=== PATIENT | male | born 1970 | race Caucasian/White ===

== ENCOUNTER 2016-11-25 14:53 | Emergency (ER) | payer SELFPAY ==
[~2016-11-25] VITALS: Ht 177.8 cm; Wt 69.0 kg
[2016-11-25 14:53] VITALS: BP 130/87; PULSE 75; RESP 12; TEMP 98.2
[2016-11-25] MEDS ORDERED: KETOROLAC TROMETHAMINE 60 MG/2 ML (IM) VIAL IM ONE (16:15)
--- NOTE | 2016-11-25 16:43 | PD ---
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 Approximately 3 hours prior to exam the patient was playing basketball and he jumped and when he came down he had pain in the anterior aspect of the knee. He has had swelling since. He has not been able to bear weight. He denies any paresthesias, new weakness or sensation disturbance. Denies any pain in his hip or ankle. No history of knee surgery. No attempts at palliation. The pain does not radiate. It neuropathy and dropfoot are complications from shingles many years ago. He denies any chronic medical problems. [facility] Social History Tobacco Use: No Allergies-Medications (Allergen,Severity, Reaction): Coded Allergies: No Known Allergies (Unverified , 11/25/16) Reported Meds & Prescriptions Reported Meds & Active Scripts Active No Active Prescriptions or Reported Medications Review of Systems General / Constitutional: No: Fever, Chills Musculoskeletal: Positive: Other (see the history of present illness) Neurologic: Positive: Sensory Disturbance (chronic, none new), No: Focal Abnormalities (chronic, none new) Physical Exam Narrative GENERAL: Well-developed and well-nourished adult male in no acute distress. SKIN: Warm and dry. Good turgor without tenting. HEAD: Normocephalic and atraumatic. EYES: PERRL bilaterally, 5mm. EOMI bilaterally. No injection or icterus present. No proptosis. Lids without edema or erythema. CARDIOVASCULAR: Regular rate and rhythm without murmurs, rubs, clicks or gallops. Dorsalis pedis and posterior tibial pulses 2+ bilaterally. Capillary refill less than 2 seconds distal tip of all toes of left foot. RESPIRATORY: Clear to auscultation bilaterally with symmetrical rise and fall, no distress or use of accessory muscles. MUSCULOSKELETAL: Left knee has swelling anteriorly. Area pain is anterior medial. It is diffuse in this region. No patellar or fibular head tenderness. Equivocal tibial plateau tenderness. Negative Mago test and varus and valgus of the left knee. Positive Tim for medial meniscal injury. Patient is no range of motion in the knee and palpation of the patellar and quadriceps tendon reveals no laxity or step-offs. Palpation of the left hip and left ankle reveals no tenderness of patient has normal range of motion in same. Patient freely moving all four extremities spontaneously. Extremities without clubbing or cyanosis. No obvious deformities. NEUROLOGIC: CN II-XII grossly intact. Awake and alert. Strength 5/5 left hip flexion, hip extension, knee flexion, knee extension. Strength 4/5 in left plantar flexion, strength 0/5 in left dorsiflexion. Sensation intact to the distal tip of all toes left foot. Normal speech. PSYCHIATRIC: Appropriate mood and affect; insight and judgment normal. Data Data Last Documented VS Vital Signs Date Time Temp Pulse Resp B/P Pulse Ox O2 Delivery O2 Flow Rate FiO2 11/25/16 14:53 98.2 75 12 130/87 Room Air Orders Ketorolac Inj (Toradol Inj) (11/25/16 16:15) Knee, Complete (4vws) (11/25/16 16:07) Ice/Cold Pack (11/25/16 16:07) Crutches (11/25/16 17:22) Splint Or Brace Apply/Monitor (11/25/16 17:22) MDM Medical Decision Making Medical Screen Exam Complete: Yes Emergency Medical Condition: Yes Interpretation(s) Last 24 hours Impressions Knee X-Ray 11/25/16 1607 Signed Impressions: Service Date/Time: October 16:48 - CONCLUSION: 1. Mild arthritic changes. No acute abnormality. Milton Tucker MD Differential Diagnosis Knee sprain versus meniscus tear versus ligamentous tear versus tibial plateau fracture Narrative Course Patient is a 46-year-old male left knee injury while playing basketball 3 hours prior to exam. There is a positive Tim however given the clinic and is him this may only be a sprain as patient seems tender with all touch and movements. There is no instability of the knee and he is neurovascular intact. He does have chronic neuropathy and dropped foot and the left lower extremity with no acute worsening. Patient is given Toradol IM and ordered x-ray of the knee which shows mild arthritic changes. No fracture or effusion. Patient was placed in a knee immobilizer and given crutches. Explained this is likely a sprain but could have a meniscus injury and recommend follow-up with PCP or orthopedic next week. Given prescription for naproxen.See discharge paperwork for further instructions. The plan was discussed with the patient who acknowledged their understanding and agreement. Reinforced the follow-up with primary care is critically important. Patient instructed on emergent conditions that should prompt return to ED. Diagnosis Primary Impression: Left knee injury Qualified Code: S89.92XA - Left knee injury, initial encounter Patient Instructions: General Instructions, Knee Sprain (ED) Departure Forms: Tests/Procedures, Work Release Enter return to work date: Nov 29, 2016 Additional Instructions: Take medications as prescribed Apply ice every 1 to 2 hours as needed for pain Avoid maneuvers that aggravate pain Keep knee immobilizer on while being active or using extremity Use crutches when walking to avoid pressure on joint Elevate when at rest Be aware that may take several weeks for sprains to heal fully Follow-up with PCP or orthopedist in 2-3 days Return to the ED for any acute worsening of symptoms Med/Other Pt SpecificInfo: Prescription(s) given Scripts Naproxen 500 Mg [id number] Mg PO BID #10 TAB Prov:Michelle Marrero MD 11/25/16 Disposition: 01 DISCHARGE HOME Condition: Stable Cy Snow III Nov 25, 2016 16:43
--- NOTE | 2016-11-25 17:18 | RADRPT ---
EXAM DATE/TIME: 11/25/2016 16:48 [facility] COMPARISON: No previous studies available for comparison. INDICATIONS : Left anterior knee pain and swelling post fall today. MEDICAL HISTORY : None. SURGICAL HISTORY : None. ENCOUNTER: Initial ACUITY: 1 day PAIN SCORE: 8/10 LOCATION: Left knee FINDINGS: The exam demonstrates mild arthritic changes in the medial compartment. There is no acute fracture or structural lesion. No joint effusion is present. CONCLUSION: 1. Mild arthritic changes. No acute abnormality. Milton Tucker MD on November 25, 2016 at 17:16 Board Certified Radiologist. This report was verified electronically.
[2016-11-25] MEDS ORDERED: NAPR500T PO (17:29)
[2016-11-25 17:45] VITALS: RESP 18
== END 2016-11-25 17:51 | disposition home or self-care (01) ==
LOC: NEPB 14:53
DX: S89.92XA Unspecified injury of left lower leg, initial encounter (principal); R22.42 Localized swelling, mass and lump, left lower limb; G57.92 Unspecified mononeuropathy of left lower limb; M21.372 Foot drop, left foot; Z86.69 Personal history of other diseases of the nervous system and sense organs; X58.XXXA Exposure to other specified factors, initial encounter; Y93.67 Activity, basketball
CPT/HCPCS: 73564; 96372; 99283; E0113; J1885; L1830

== ENCOUNTER 2017-04-07 20:42 | Observation (INO) | payer OTHER ==
[~2017-04-07] VITALS: Ht 177.8 cm; Wt 75.0 kg
[~2017-04-07 20:42] MED LIST: NAPR500T PO
[2017-04-07 20:46] VITALS: BP 132/74; PULSE 96; RESP 22; TEMP 98.1; O2SAT 97
[2017-04-07] MEDS ORDERED: methylPREDNISolone SOD SUCC 125 MG/2 ML VIAL IVP ONE (21:15)
--- NOTE | 2017-04-07 21:19 | PD ---
HPI Chief Complaint: Chest Pain Time Seen by Provider: 21:00 Travel History International Travel<30 days: No Contact w/Intl Traveler<30days: No Traveled to known affect area: No History of Present Illness HPI 46yo M with PMH of polysubstance abuse presents to the ED with c/o left sided chest pain for a few days. States it is sharp, nonradiating and associated with sob. Pt has been smoking cocaine for last 5 days and last time was an hour ago. +Cough. +Cigarette smoking. Denies any shop tech or follow up. Denies any fever, IVDA, n/v, abdominal pain, focal weakness or numbness. PFSH Past Medical History Medical History: Denies Significant Hx Tetanus Vaccination: Unknown Influenza Vaccination: No Past Surgical History Tonsillectomy: Yes Social History Alcohol Use: Yes Tobacco Use: Yes Substance Use: Yes (COCAINE, FLAKKA) Allergies-Medications (Allergen,Severity, Reaction): Coded Allergies: No Known Allergies (Unverified , 04/07/17) Reported Meds & Prescriptions Reported Meds & Active Scripts Active Ventolin Hfa 18 GM Inh (Albuterol Sulfate) 90 Mcg/Act Aer 2 Puff INH Q4H PRN Deltasone (Prednisone) 20 Mg Tab 20 Mg PO BID 5 Days Review of Systems Except as stated in HPI: all other systems reviewed are Neg Physical Exam Narrative GENERAL: 46yo M in mild distress. SKIN: Focused skin assessment warm/dry. HEAD: Atraumatic. Normocephalic. EYES: Pupils equal and round. No scleral icterus. No injection or drainage. ENT: No nasal bleeding or discharge. Mucous membranes pink and moist. NECK: Trachea midline. No JVD. CARDIOVASCULAR: Regular rate and rhythm. No murmur appreciated. RESPIRATORY: No accessory muscle use. Coarse breath sounds bilaterally. GASTROINTESTINAL: Abdomen soft, non-tender, nondistended. MUSCULOSKELETAL: No obvious deformities. No clubbing. No cyanosis. No edema. NEUROLOGICAL: Awake and alert. No obvious cranial nerve deficits. Motor grossly within normal limits. Normal speech. PSYCHIATRIC: Appropriate mood and affect; insight and judgment normal. Data Data Last Documented VS Vital Signs Date Time Temp Pulse Resp B/P Pulse Ox O2 Delivery O2 Flow Rate FiO2 04/07/17 22:00 88 18 123/69 96 Room Air 04/07/17 20:46 98.1 Orders Electrocardiogram (04/07/17 20:57) Complete Blood Count With Diff (04/07/17 20:57) Basic Metabolic Panel (Bmp) (04/07/17 20:57) Ckmb (Isoenzyme) Profile (04/07/17 20:57) Troponin I (04/07/17 20:57) Chest, Single Ap (04/07/17 20:57) Iv Access Insert/Monitor (04/07/17 20:57) Ecg Monitoring (04/07/17 20:57) Oxygen Administration (04/07/17 20:57) Oximetry (04/07/17 20:57) Drug Screen, Random Urine (04/07/17 20:57) Methylprednisolone So Succ Inj (Solumedr (04/07/17 21:15) Albuterol-Ipratropium Neb (Duoneb Neb) (04/07/17 21:15) CKMB (04/07/17 20:55) CKMB% (04/07/17 20:55) Admit Order (Ed Use Only) (04/07/17 22:29) Activity Bed Rest With Brp (04/07/17 22:29) Vital Signs (Adult) Q4H (04/07/17 22:29) Cardiac Rhythm .As Directed (04/07/17:29) Notify Dr: Other .PRN (04/07/17 22:29) Notify DrLucille Parameters (04/07/17:29) Resp Oxygen Nasal Cannula (04/07/17 ) Ckmb (Isoenzyme) Profile (04/07/17:29) Ckmb (Isoenzyme) Profile (04/08/17 01:29) Troponin I (04/07/17 22:29) Troponin I (04/08/17 01:29) Electrocardiogram (04/07/17 22:29) Electrocardiogram (04/08/17 01:29) ^ Obtain (04/07/17:29) Pneumatic Tube Operator / Telemetry JACY.Q8H (04/07/17 22:29) CKMB (04/08/17 01:30) CKMB% (04/08/17 01:30) Labs Laboratory Tests Test 04/07/17 04/07/17 20:55 21:00 White Blood Count 9.3 TH/MM3 Red Blood Count 4.66 MIL/MM3 Hemoglobin 15.4 GM/DL Hematocrit 43.6 % Mean Corpuscular Volume 93.6 FL Mean Corpuscular Hemoglobin 32.9 PG Mean Corpuscular Hemoglobin 35.2 % Concent Red Cell Distribution Width 12.9 % Platelet Count 203 TH/MM3 Mean Platelet Volume 8.4 FL Neutrophils (%) (Auto) 67.6 % Lymphocytes (%) (Auto) 23.4 % Monocytes (%) (Auto) 7.4 % Eosinophils (%) (Auto) 1.1 % Basophils (%) (Auto) 0.5 % Neutrophils # (Auto) 6.3 TH/MM3 Lymphocytes # (Auto) 2.2 TH/MM3 Monocytes # (Auto) 0.7 TH/MM3 Eosinophils # (Auto) 0.1 TH/MM3 Basophils # (Auto) 0.0 TH/MM3 CBC Comment DIFF FINAL Differential Comment Sodium Level 139 MEQ/L Potassium Level 3.8 MEQ/L Chloride Level 105 MEQ/L Carbon Dioxide Level 18.3 MEQ/L Anion Gap 16 MEQ/L Blood Urea Nitrogen 10 MG/DL Creatinine 1.04 MG/DL Estimat Glomerular Filtration 77 ML/MIN Rate Random Glucose 138 MG/DL Calcium Level 9.1 MG/DL Total Creatine Kinase 239 U/L Creatine Kinase MB 1.2 NG/ML Troponin I LESS THAN 0.02 NG/ML Urine Opiates Screen NEG Urine Barbiturates Screen NEG Urine Amphetamines Screen NEG Urine Benzodiazepines Screen NEG Urine Cocaine Screen POS Urine Cannabinoids Screen NEG MDM Medical Decision Making Medical Screen Exam Complete: Yes Emergency Medical Condition: Yes Interpretation(s) EKG: NSR 46bpm. LAD. TWI aVL. No ST segment elevation or depression. Differential Diagnosis Cocaine induced chest pain vs. ACS vs. COPD vs. pneumonia Narrative Course 46yo M with left sided chest pain that is intermittent and associated with cocaine use. Last use cocaine an hour prior to coming. Pt does have coarse breath sounds bilaterally and is a smoker so gave duonebs x3 and methylprednisolone 125mg IV. Pt is saturating at 98% on RA and not in distress. Pt likely have chronic bronchitis and emphysema. Labs reviewed, no leukocytosis. Chloride is mildly decreased, will give NS IVF. Glucose is 138. Troponin is negative. Urine positive for cocaine. CXR negative. Pt given aspirin. Will admit to chest pain center for serial EKG and cardiac enzymes. Diagnosis Primary Impression: Chest pain Qualified Code: R07.9 - Chest pain, unspecified type Admitting Information Admitting Physician Requests: Observation Med/Other Pt SpecificInfo: Prescription(s) given Scripts Albuterol 18 GM Inh (Ventolin Hfa 18 GM Inh)90 Mcg/Act Aer2 Puff INH Q4H PRN ( SHORTNESS OF BREATH) #1 INHALER Ref 0 Prov:Lindy Richard DO 04/07/17 Prednisone (Deltasone)20 Mg Tab20 Mg PO BID 5 Days Ref 0 Prov:Lindy Richard DO 04/07/17 Lindy Richard DO Apr 07, 2017 21:19
[2017-04-07 21:21] LABS: AUTOMATED NEUTROPHIL # 6.3 TH/MM3 (1.8-7.7); BASOPHIL % 0.5 % (0.0-2.0); EOSINOPHIL # 0.1 TH/MM3 (0-0.4); EOSINOPHIL % 1.1 % (0.0-4.0); HEMATOCRIT 43.6 % (39.0-51.0); HEMO FLAGS DIFF FINAL; LYMPH % 23.4 % (9.0-44.0); LYMPHOCYTE # 2.2 TH/MM3 (1.0-4.8); MEAN CELL VOLUME 93.6 FL (80.0-100.0); MEAN CORPUSCULAR HEMOGLOBIN 32.9 PG (27.0-34.0); MEAN CORPUSCULAR HGB CONC 35.2 % (32.0-36.0); MONO % 7.4 % (0.0-8.0); NEUT % 67.6 % (16.0-70.0); PLATELET COUNT 203 TH/MM3 (150-450); RED BLOOD COUNT 4.66 MIL/MM3 (4.50-5.90); RED CELL DISTRIBUTION WIDTH 12.9 % (11.6-17.2); WHITE BLOOD COUNT 9.3 TH/MM3 (4.0-11.0)
[2017-04-07 21:25] LABS: AMPHETAMINE, URINE NEG (NEG); BARBITURATES, URINE NEG (NEG); COCAINE, URINE POS (NEG)
[2017-04-07] MEDS: RESP: ALBUTEROL 2.5 MG/IPRATROPIUM 0.5 MG NEB (SCH) INH ×3 (21:36→21:45)
[2017-04-07 21:38] LABS: ANION GAP 16 MEQ/L (5-15); BICARBONATE 18.3 MEQ/L (21.0-32.0); BLOOD UREA NITROGEN 10 MG/DL (7-18); CHLORIDE 105 MEQ/L (98-107); GLOMERULAR FILTRATION RATE 77 ML/MIN (>89); POTASSIUM 3.8 MEQ/L (3.5-5.1); SODIUM (NA) 139 MEQ/L (136-145)
--- NOTE | 2017-04-07 21:40 | RADRPT ---
EXAM DATE/TIME: 04/07/2017 21:21 [facility] COMPARISON: No previous studies available for comparison. INDICATIONS : Chest pain. MEDICAL HISTORY : Chronic obstructive pulmonary disease. SURGICAL HISTORY : None. ENCOUNTER: Initial ACUITY: 4 - 6 days PAIN SCORE: 5/10 LOCATION: Bilateral chest FINDINGS: A single view of the chest demonstrates the lungs to be symmetrically aerated without evidence of mas s, infiltrate or effusion. The cardiomediastinal contours are unremarkable. Osseous structures are intact. CONCLUSION: No acute disease. Cy Huerta MD on April 07, 2017 at 21:38 Board Certified Radiologist. This report was verified electronically.
[2017-04-07 21:42] LABS: CREATINE KINASE 239 U/L (39-308)
[2017-04-07 21:56] LABS: CKMB 1.2 NG/ML (0.5-3.6)
[2017-04-07 22:00] VITALS: BP 123/69; PULSE 88; RESP 18; O2SAT 96
[2017-04-07] MEDS ORDERED: PRED-503 PO (22:35)
[2017-04-07] MEDS ORDERED: VENTAER INH (22:35)
[2017-04-07] MEDS ORDERED: SODIUM CHLOR 0.9% 1000 ML INJ 1,000 ML IV ONE (22:45)
[2017-04-07] MEDS ORDERED: ASPIRIN 325 MG TAB PO ONE (22:45)
[2017-04-07 23:29] VITALS: BP 115/68; PULSE 90; RESP 20; TEMP 96.3; O2SAT 99
[2017-04-07 23:31] LABS: CREATINE KINASE 219 U/L (39-308)
[2017-04-08 02:41] LABS: CREATINE KINASE 204 U/L (39-308)
[2017-04-08 02:54] LABS: CKMB 1.2 NG/ML (0.5-3.6)
[2017-04-08 04:01] VITALS: BP 111/60; PULSE 74; RESP 20; TEMP 96.5; O2SAT 98
[2017-04-08 07:34] VITALS: O2SAT 98
--- NOTE | 2017-04-08 07:58 | HHI.HP ---
HPI Primary Care Physician David Masters Chief Complaint Chest pain History of Present Illness 46-year-old male presents to emergency room for further evaluation of chest pain endorses x5 days constant cocaine use. Onset 3 days ago. Location left anterior chest. Characterized as pressure with intermittent quick sharp pains. Duration constant waxing and waning in intensity. No radiation of pain. Precipitating factors he relates to constant cocaine use 5 days. Endorses he has not slept or a the last 5 days, stating "I've only been smoking cocaine." No known relieving factors. No particular movement or position makes pain better or worse. Denies any similar chest pain in the past. Review of Systems General: No fever, chills, or recent illness. Endorses he has been in his general state of health other than the last 5 days of cocaine use. Reports he has not eaten in 5 days due to his "constant high." States he had been clean for a year and a half prior to most recent cocaine binge. HEENT: No HEDRICK, no nasal congestion or drainage, no dysphasia CV: As stated above. Continues to have intermittent chest pressure. RESP: No SOB, cough, wheeze, or recent URI. GI: No nausea, vomiting, bowel changes, diarrhea, constipation, pain, distention , melena, blood in the stool. : No dysuria, urgency, frequency EXT: No lower leg edema, no paraesthesias MS: No change in ROM NEURO: No change in memory, dizziness, difficulty with balance, LOC, motor/ sensory deficits PSYCH: No anxiety, depression, or suicidal ideation. SKIN: No rashes, no concerning lesions Past Family Social History Allergies: Coded Allergies: No Known Allergies (Unverified , 04/07/17) Past Medical History Polysubstance abuse Past Surgical History Tonsillectomy Reported Medications Active (GIVEN IN THIS ER ADMISSION) Ventolin Hfa 18 GM Inh (Albuterol Sulfate) 90 Mcg/Act Aer 2 Puff INH Q4H PRN Deltasone (Prednisone) 20 Mg Tab 20 Mg PO BID 5 Days Active Ordered Medications Current Medications Medications (Trade) Dose Ordered Sig/Taylor Route Start Time Stop Time Status Last Admin (Pneumovax-23 Inj) 25 mcg ONCE ONCE IM 04/08/17 09:00 04/08/17 09:01 Family History Noncontributory for early onset cardiovascular disease. Father has had multiple open heart surgeries although related to congenital defects. Social History No known diabetes, hypertension, hyperlipidemia. Current smoker1/2 pack daily. Drinks 6 beers daily. Cocaine use 5 days last use 1 hour prior to arrival to ER. Works as a hot tar roofer helper. Active. Endorses he does not have any chest discomfort with activity or exertion. Past cardiac testing None Physical Exam Vital Signs Vital Signs Date Time Temp Pulse Resp B/P Pulse Ox O2 Delivery O2 Flow Rate FiO2 04/08/17 07:34 98 21 04/08/17 04:01 96.5 74 20 111/60 98 04/07/17 23:29 96.3 90 20 115/68 99 04/07/17 22:00 88 18 123/69 96 Room Air 04/07/17 20:46 98.1 96 22 132/74 97 Physical Exam GENERAL: Alert WN, WD, NAD, pleasant, male HEAD: NC, AT EYES: Sclera clear NECK: Supple, no masses, trachea midline CV: RRR, without murmur, rub, gallop, no JVD, S1-S2 no S3-S4. Chest wall pain reproducible upon palpation. RESP: Rhonchi upper lobes, bilateral wheezing bilateral, No crackles, symmetrical chest rise, nonlabored, able to speak in full sentences ABD: Soft, NT, ND, no masses, positive bowel tones EXT: Pulses +24, no dependent edema MS: Normal tone 4 extremities, nontender, no obvious deformities, full range of motion NEURO: CN II through CN XII grossly intact, motor strength 5/5, gait WNL PSYCH: A+O 3, pleasant affect, appropriate speech, appropriate mood and affect , insight and judgment SKIN: Normal turgor, normal texture, no lesions, no rashes, brisk cap refill, even hair distribution Laboratory Laboratory Tests Test 04/07/17 04/07/17 04/07/17 04/08/17 20:55 21:00 22:50 01:30 White Blood Count 9.3 Red Blood Count 4.66 Hemoglobin 15.4 Hematocrit 43.6 Mean Corpuscular Volume 93.6 Mean Corpuscular Hemoglobin 32.9 Mean Corpuscular Hemoglobin 35.2 Concent Red Cell Distribution Width 12.9 Platelet Count 203 Mean Platelet Volume 8.4 Neutrophils (%) (Auto) 67.6 Lymphocytes (%) (Auto) 23.4 Monocytes (%) (Auto) 7.4 Eosinophils (%) (Auto) 1.1 Basophils (%) (Auto) 0.5 Neutrophils # (Auto) 6.3 Lymphocytes # (Auto) 2.2 Monocytes # (Auto) 0.7 Eosinophils # (Auto) 0.1 Basophils # (Auto) 0.0 CBC Comment DIFF FINAL Differential Comment Sodium Level 139 Potassium Level 3.8 Chloride Level 105 Carbon Dioxide Level 18.3 Anion Gap 16 Blood Urea Nitrogen 10 Creatinine 1.04 Estimat Glomerular Filtration 77 Rate Random Glucose 138 Calcium Level 9.1 Total Creatine Kinase 239 219 204 Creatine Kinase MB 1.2 1.2 Troponin I LESS THAN 0.02 LESS THAN 0.02 LESS THAN 0.02 Urine Opiates Screen NEG Urine Barbiturates Screen NEG Urine Amphetamines Screen NEG Urine Benzodiazepines Screen NEG Urine Cocaine Screen POS Urine Cannabinoids Screen NEG Result Diagram: 04/07/17205404/07/172054 Imaging Last Impressions Chest X-Ray 04/07/172056 Signed Impressions: Service Date/Time: March 21:21 - CONCLUSION: No acute disease. Cy Huerta MD Course EKGs Normal sinus rhythm, no ST or T-segment changes Assessment and Plan Assessment and Plan #1 Chest painthe chest pain center. Ruled out with serial EKGs and cardiac enzymes. Seen and evaluated by Dr. Verena Matt. No further cardiac testing at this time. Offered exercise treadmill, however discuss chest discomfort likely related to his recent cocaine binge. He does not want to complete an exercise treadmill as he also believes chest discomfort related to cocaine binge. Encouraged him to rest over the weekend, eating and drinking plenty of fluids, and to stop using cocaine. #2 Cocaine use-counseled on risks of cocaine use, risk of [place], weakening of the heart muscle, and even . Instructed to speak with PCP regarding drug treatment plan. #3 Tobacco use-strongly encouraged and stressed importance of tobacco sensation. Discussed and counseled patient to quit smoking. Ibeth Coulter Apr 08, 2017 07:58
[2017-04-08] MEDS ORDERED: ACETAMINOPHEN 500 MG CPLT PO PRN (08:00)
[2017-04-08] MEDS ORDERED: NITROGLYCERIN 0.4 MG SL 25 TABS/BTL SL PRN (08:00)
[2017-04-08] MEDS ORDERED: ONDANSETRON HCL 4 MG/2 ML VIAL IV PRN (08:00)
[2017-04-08 08:13] VITALS: BP 125/57; PULSE 60; RESP 20; TEMP 97.9; O2SAT 95
[2017-04-08] MEDS ORDERED: ASPIRIN 325 MG TAB PO SCH (09:00)
[2017-04-08] MEDS ORDERED: PNEUMOCOCCAL POLYVALENT INJ 25 MCG/0.5 ML SYR IM ONE (09:00)
[2017-04-08] MEDS ORDERED: RESP: ALBUTEROL 2.5 MG/3 ML NEB (PRN) NEB (09:15)
--- NOTE | 2017-04-08 09:29 | HHI.DCPOC ---
Discharge Care Plan Diagnosis: (1) Atypical chest pain (2) Substance abuse (3) Tobacco abuse Goals to Promote Your Health * To prevent worsening of your condition and complications * To maintain your health at the optimal level Directions to Meet Your Goals Take your medications as prescribed Follow your dietary instruction Follow activity as directed Keep your appointments as scheduled Take your immunizations and boosters as scheduled If your symptoms worsen call your PCP, if no PCP go to Urgent Care Center or Emergency Room Smoking is Dangerous to Your Health. Avoid second hand smoke Call the 24-hour hour crisis hotline for domestic abuse at Ibeth Coulter Apr 08, 2017 09:29
[2017-04-08 10:22] VITALS: PULSE 62
--- NOTE | 2017-04-08 15:18 | EKG ---
Date Performed: 04/08/2017 Time Performed: 04:06:36 PTAGE: 46 years EKG: SINUS BRADYCARDIA BORDERLINE ECG PREVIOUS TRACING : 04/07/2017 23.37 Since previous tracing, no significant change noted DOCTOR: Verena Matt Interpretating Date/Time 04/08/2017 15:17:04
--- NOTE | 2017-04-08 15:18 | EKG ---
Date Performed: 04/07/2017 Time Performed: 23:37:40 PTAGE: 46 years EKG: Sinus rhythm WITH SINUS ARRHYTHMIA INDETERMINATE AXIS BORDERLINE ECG Since PREVIOUS TRACING , no significant change noted PREVIOUS TRACIN04/07/2017 22.56 DOCTOR: Verena Matt Interpretating Date/Time 04/08/2017 15:17:29
--- NOTE | 2017-04-08 15:22 | EKG ---
Date Performed: 04/07/2017 Time Performed: 22:56:20 PTAGE: 46 years EKG: Sinus rhythm INDETERMINATE AXIS ATYPICAL ECG Abnormal T wave repolarization PREVIOUS TRACING : 04/07/2017 20.50 DOCTOR: Verena Matt Interpretating Date/Time 04/08/2017 15:21:29
--- NOTE | 2017-04-08 15:23 | EKG ---
Date Performed: 04/07/2017 Time Performed: 20:50:01 PTAGE: 46 years EKG: Sinus rhythm INDETERMINATE AXIS ABNORMAL ECG NO PREVIOUS TRACING DOCTOR: Verena Matt Interpretating Date/Time 04/08/2017 15:21:52
== END 2017-04-08 11:03 | disposition home or self-care (01) ==
LOC: NEPE 20:42 → NEDA 22:31 → NEPGCP 23:22
PROVIDERS: ADMIT Internal Medicine Interventional Cardiology; ATTEND Internal Medicine Interventional Cardiology
DX: R07.89 Other chest pain (principal); F17.210 Nicotine dependence, cigarettes, uncomplicated; F14.90 Cocaine use, unspecified, uncomplicated; Z82.49 Family history of ischemic heart disease and other diseases of the circulatory system
CPT/HCPCS: 71010; 80048; 80307; 82550; 82552; 84484; 85025; 90732; 93005; 94640; 94664; 96361; 96374; 99285; G0378; J2930; J7030

== ENCOUNTER 2018-10-06 05:40 | Inpatient (IN) ==
[2018-10-06] MEDS ORDERED: Ketorolac Inj 30 MG/ML (IVP) Vial IV.PUSH ONE (06:06)
[2018-10-06] MEDS ORDERED: Sod Chloride 0.9% Inj 1,000 ML IV.SIG ONE (06:06)
[2018-10-06 06:47] LABS: Baso # (Auto) 0.1 th/mm3 (0.0-0.2); Eos # (Auto) 0.8 th/mm3 (0.0-0.4); Eos % (Auto) 15.3 % (0.0-4.0); Hematocrit 44.9 % (39.0-51.0); Hemoglobin 15.8 gm/dL (13.0-17.0); Lymph % (Auto) 37.9 % (9.0-44.0); Mean Corpuscular HGB Conc 35.1 % (32.0-36.0); Mean Corpuscular Hemoglobin 35.1 pg (27.0-34.0); Mean Corpuscular Volume 99.8 fL (80.0-100.0); Mean Platelet Volume 9.2 fL (7.0-11.0); Mono # (Auto) 0.4 th/mm3 (0.0-0.9); Mono % (Auto) 7.4 % (0.0-8.0); Neut # (Auto) 2.1 th/mm3 (1.8-7.7); Neut % (Auto) 38.4 % (16.0-70.0); Platelet Count 165 th/mm3 (150-450); Red Cell Distribution Width 13.5 % (11.6-17.2); White Blood Count 5.4 th/mm3 (4.0-11.0)
--- NOTE | 2018-10-06 07:02 | ED ---
HPI General Chief Complaint: Abdominal Pain Stated Complaint: Cold,flu Time Seen by Provider: 10/06/18 05:52 History of Present Illness HPI narrative: This is a 47-year-old male with history coronary artery disease, who presents today with complaints of right lower quadrant abdominal pain that woke him from sleep. Patient states that sharp and unrelenting. He reports associated mild nausea with no vomiting. There is no diarrhea. He states he thought he had to have a bowel movement however this did not relieve his discomfort. There is no reported fevers, chills. He does have a history of kidney stones in the distant past. He is unsure whether this feels as though the it did when he had that. There are no other complaints at the time of examination. Related Data Home Medications Medication Instructions Recorded Confirmed No Known Home Medications 10/06/18 10/06/18 Allergies Allergy/AdvReac Type Severity Reaction Status Date / Time No Known Allergies Allergy Uncoded 04/07/17 20:49 Review of Systems ROS: all other systems reviewed are negative Constitutional Denies chills and Denies fever(s) Eyes Reports system reviewed and no additional complaints, except as docu ENT Reports system reviewed and no additional complaints, except as docu Cardiovascular Denies chest pain, Denies diaphoresis and Denies dyspnea Respiratory Denies cough and Denies dyspnea Gastrointestinal Reports abdominal pain (Lower quadrant), Reports nausea and Denies vomiting Genitourinary Denies dysuria and Reports flank pain (Right flank) Musculoskeletal Reports other Neurologic Reports system reviewed and no additional complaints, except as docu PMFSH Medical History Medical History Patient denies significant medical history (Acute) Surgical History Surgical History No history of previous surgery (Acute) Social History Social History Substance History: Past History Smoking Status: Current every day smoker Tobacco Type: Cigarettes How Often Do You Have a Drink Containing Alcohol: Never Recent Travel in [facility] within the Last 8 Weeks: No Recent Out of Country Travel within the Last 8 Weeks: No Immunization History Tetanus Immunization: Unsure Exam Narrative Exam Narrative: GENERAL: Well-developed well-nourished male in no acute respiratory distress. SKIN: Focused skin assessment warm/dry. HEAD: Atraumatic. Normocephalic. EYES: No scleral icterus. No injection or drainage. ENT: No nasal bleeding or discharge. Mucous membranes pink and moist. NECK: Trachea midline. Supple. CARDIOVASCULAR: Regular rate and rhythm. No murmur appreciated. RESPIRATORY: No accessory muscle use. Clear to auscultation. Breath sounds equal bilaterally. GASTROINTESTINAL: Abdomen soft, subjective right lower quadrant pain. There is no rebound. There is mild guarding to deep palpation. MUSCULOSKELETAL: No obvious deformities. No clubbing. No cyanosis. No edema. Objective right flank pain. No CVA tenderness. NEUROLOGICAL: Awake and alert. No obvious cranial nerve deficits. Motor grossly within normal limits. Normal speech. Course Initial Documented Vital Signs Temperature 98.1 F 10/06/18 05:41 Pulse Rate 59 L 10/06/18 05:41 Respiratory Rate 18 10/06/18 05:41 Blood Pressure 150/77 H 10/06/18 05:41 Pulse Oximetry 100 10/06/18 05:41 Last Documented Vital Signs Temperature 98.1 F 10/06/18 05:41 Pulse Rate 60 10/06/18 10:00 Respiratory Rate 16 10/06/18 10:00 Blood Pressure 122/87 10/06/18 10:00 Pulse Oximetry 99 10/06/18 10:00 Sign Out Sign Out Data: Patient Sign Out occurred on 10/06/18 at 08:45. Patient's care was discussed, and care was transferred from Rico cMcall MD to Sunshine Echeverria. Sign Out Comment: 47-year-old male presents with right lower quadrant pain. Patient states it woke him up suddenly from sleep. It is right lower quadrant radiating towards his groin. It does start in the flank as well. Patient does have a history of kidney stones in the distant past. Urinalysis is pending at this time. If his urinalysis shows evidence of hematuria, a CT scan without contrast will be ordered otherwise he will need one with contrast. Case was signed out to Dr. Cox at change of shift. Last updated by Rico Mccall MD at 10/06/18 07:15 Post-Handoff Eval: Patient was signed out to me by Dr. Mccall at change of shift. UA shows hematuria, a CT of the chest without IV contrast was ordered as there is concerns for a kidney stone. Patient remains comfortable as he has just received Toradol. Medical Decision Making MDM Narrative Medical decision making narrative: During the course of the patients emergency department visit, the patients history, examination, and differential diagnosis were reviewed with the patient. The patient was placed on a spooler with oximetry and frequent blood pressure monitoring. The patient had an IV access obtained and blood work sent for analysis. The patient was initially provided IV Toradol as well as IV morphine for pain relief. The patients laboratory studies were reviewed and remarkable for: cbc: wnl bmp: Sodium 143, potassium 4.5, BUN 15, creatinine 1.08, glucose 91, LFTs are within normal limits. UA is positive for moderate blood, 9 red blood cells, few mucus Radiology studies were reviewed and remarkable for: CT of the abdomen and pelvis shows that there is a right-sided hydronephrosis and hydroureter caused by a 5 x 3 mm stone in the right proximal ureter. Additionally, there are nonobstructing stones in the right kidney as well as a left kidney. I did review lab work as well as CT report with patient as well as his was at bedside. Patient reports that the last time had a kidney stone was 1995, he was able to pass his kidney stone by himself and it did not require any urological intervention. Despite having IV Toradol, patient remains in pain, plan to administer another dose of morphine. Patient has been in the emergency room for over 4 hours, patient reports that the morphine is not touching his pain. Call made to urology to review case. Patient was medicated with IV morphine, patient still unable to tolerate pain, call me to for health care for admission. Case discussed with the resident, accepts patient under Dr. Koehler service. Medical Screen Exam Complete: Yes Emergency Medical Condition: Yes Differential Diagnosis Differential Diagnosis: Renal colic versus appendicitis versus gastroenteritis Lab Data Result diagrams: 10/06/18 06:10 10/06/18 06:10 Lab Results 10/06/18 10/06/18 10/06/18 Range/Units 06:10 06:10 06:33 WBC 5.4 (4.0-11.0) th/mm3 RBC 4.50 (4.50-5.90) mil/mm3 Hgb 15.8 (13.0-17.0) gm/dL Hct 44.9 (39.0-51.0) % MCV 99.8 (80.0-100.0) fL MCH 35.1 H (27.0-34.0) pg MCHC 35.1 (32.0-36.0) % RDW 13.5 (11.6-17.2) % Plt Count 165 (150-450) th/mm3 MPV 9.2 (7.0-11.0) fL Neut % (Auto) 38.4 (16.0-70.0) % Lymph % (Auto) 37.9 (9.0-44.0) % Allen % (Auto) 7.4 (0.0-8.0) % Eos % (Auto) 15.3 H (0.0-4.0) % Baso % (Auto) 1.0 (0.0-2.0) % Neut # (Auto) 2.1 (1.8-7.7) th/mm3 Lymph # (Auto) 2.0 (1.0-4.8) th/mm3 Allen # (Auto) 0.4 (0.0-0.9) th/mm3 Eos # (Auto) 0.8 H (0.0-0.4) th/mm3 Baso # (Auto) 0.1 (0.0-0.2) th/mm3 WBC Differential . Differential Comment Auto diff final Sodium 143 (136-145) meq/L Potassium 4.5 (3.5-5.1) meq/L Chloride 110 H (98-107) meq/L Carbon Dioxide 29.3 (21.0-32.0) meq/L Anion Gap 4 L (5-15) meq/L BUN 15 (7-18) mg/dL Creatinine 1.08 (0.60-1.30) mg/dL Estimated GFR 73 L (>89) mL/min Random Glucose 91 (74-106) mg/dL Calcium 8.3 L (8.5-10.1) mg/dL Magnesium 2.3 (1.5-2.5) mg/dL Total Bilirubin 0.3 (0.2-1.0) mg/dL AST 20 (15-37) U/L ALT 21 (12-78) U/L Alkaline Phosphatase 58 (45-117) U/L Total Protein 7.7 (6.4-8.2) g/dL Albumin 3.9 (3.4-5.0) g/dL Lipase 144 (73-393) U/L Urine Color Yellow (Yellw/Straw) Urine Clarity Clear (Clear) Urine pH 5.0 (5.0-8.5) Ur Specific [place] 1.018 (1.002-1.035) Urine Protein Negative (Neg-Trace) mg/dL Urine Glucose (UA) Negative (Negative) mg/dL Urine Ketones Negative (Negative) mg/dL Urine Occult Blood Moderate H (Negative) Urine Nitrate Negative (Negative) Urine Bilirubin Negative (Negative) Urine Urobilinogen Less than 2 (Less than 2) mg/dL Ur Leukocyte Esterase Negative (Negative) Urine RBC 9 H (0-3) /hpf Urine WBC 1 (0-5) /hpf Ur Squamous Epith Cells <1 (0-5) /hpf Urine Mucus Few H (Occasional) /lpf Micro UA Comment Culture not ind Ur Microscopic Review Not Reportable Urine Culture Comments Culture not ind Imaging Data Radiologist's impression: Abdomen/Pelvis CT 10/06/18 07:25 CONCLUSION: 1. There is right hydronephrosis and hydroureter caused by a 5 x 3 mm stone in the right proximal ureter. Additional nonobstructing stones are present within each kidney, as above. 2. Remainder of the examination demonstrates no acute abnormality. Discharge Plan Discharge Disposition Patient Disposition: ED Admit(ED Internal Use Only) Discharge Condition Condition: Fair Discharge Order Discharge Orders: ED Use Only Admit Order (Routine); Ordered 10/06/18 Ordered By: Sunshine Echeverria Discharge Details Diagnosis: Kidney stone on right side, Intractable abdominal pain Physicians Team ED Provider: Sunshine Echeverria Primary Care Provider: Primary Care Sowmya Hong Rxs /Orders / Referrals /Forms Prescriptions: No Action No Known Home Medications RF: 0 Status ED Status: With Doctor
[2018-10-06 07:05] LABS: Alkaline Phosphatase 58 U/L (45-117); Total Protein 7.7 g/dL (6.4-8.2)
[2018-10-06 07:09] LABS: Bilirubin,Urine Negative (Negative); Clarity,Urine Clear (Clear); Color,Urine Yellow (Yellw/Straw); Glucose,Urine (UA) Negative (Negative); Leukocyte Esterase,Urine Negative (Negative); Mucus,Urine Few /lpf (Occasional); Nitrite,Urine Negative (Negative); Specific Gravity,Urine 1.018 (1.002-1.035); Squamous Epithelial Cell,Urine <1 /hpf (0-5)
[2018-10-06 07:10] LABS: Alanine Aminotransferase 21 U/L (12-78); Albumin 3.9 g/dL (3.4-5.0); Anion Gap 4 meq/L (5-15); Aspartate Aminotransferase 20 U/L (15-37); Blood Urea Nitrogen 15 mg/dL (7-18); Calcium 8.3 mg/dL (8.5-10.1); Carbon Dioxide 29.3 meq/L (21.0-32.0); Chloride 110 meq/L (98-107); Glomerular Filtration Rate 73 mL/min (>89); Glucose,Random 91 mg/dL (74-106); Lipase 144 U/L (73-393); Magnesium 2.3 mg/dL (1.5-2.5); Potassium 4.5 meq/L (3.5-5.1); Sodium 143 meq/L (136-145)
--- NOTE | 2018-10-06 08:17 | CT ---
EXAM DATE: 10/06/2018 8:09 AM EST AGE/SEX: 47 years / Male INDICATIONS: Right side flank and lower quadrant abdominal pain. Nausea. CLINICAL DATA: This is the patient's initial encounter. Patient reports that signs and symptoms have been present for 1 day and indicates a pain score of 6/10. MEDICAL/SURGICAL HISTORY: Renal calculi. Coronary artery disease. None. RADIATION DOSE: 3.18 CTDI (mGy) COMPARISON: No prior exams available for comparison. TECHNIQUE: Multiple contiguous axial images were obtained through the abdomen. Images were obtained using multiple row detector helical technique. Using automated exposure control and adjustment of the mA and/or kV according to patient size, radiation dose was kept as low as reasonably achievable to o btain optimal diagnostic quality images. DICOM format image data is available electronically for rev iew and comparison. FINDINGS: Lower chest: No acute abnormality is identified. Hepatobiliary: Liver density is normal. No focal lesion is appreciated on this noncontrast examinatio n. No calcified gallstones are present. Kidneys: There is a 2 mm nonobstructing stone in the right mid kidney and there is mild to moderate r ight hydronephrosis and hydroureter caused by a 5 x 3 mm stone in the right proximal ureter. There is a 2 mm punctate density in the right pelvis of uncertain location. I cannot exclude that it is withi n the ureter. Within the left kidney there is a single 3 mm nonobstructing stone in the upper pole co llecting system. No left hydronephrosis is present. Adrenal Glands: Not well visualized but no abnormality is appreciated. Spleen: Within normal limits. Pancreas: No abnormality is appreciated on this noncontrast examination. Vascular: The aorta is nonaneurysmal. There is mild atherosclerotic disease. Bowel/Mesentery: The stomach and small bowel demonstrate no abnormality. No acute colon abnormality i s seen. There is no free intraperitoneal air or fluid. Abdominal Wall: No hernia is visualized. Retroperitoneum: No lymphadenopathy. Bladder: No wall thickening or mass. Reproductive: Within normal limits. Inguinal: No lymphadenopathy or hernia. Musculoskeletal: No acute osseous abnormality is identified. CONCLUSION: 1. There is right hydronephrosis and hydroureter caused by a 5 x 3 mm stone in the right proximal ur eter. Additional nonobstructing stones are present within each kidney, as above. 2. Remainder of the examination demonstrates no acute abnormality. Electronically signed by: Cy Mitchell MD 10/06/2018 8:16 AM EST
[2018-10-06] MEDS ORDERED: Morphine Inj 4 MG/ML Vial IV.PUSH ONE ×2 (08:49→09:57)
[2018-10-06] MEDS ORDERED: Sod Chloride 0.9% Inj 1,000 ML IV.SIG SCH (09:00)
[2018-10-06] MEDS ORDERED: HYDROmorphone PF Inj 2 MG/ML Vial IV.PUSH ONE (10:52)
--- NOTE | 2018-10-06 11:16 | P.HPFP ---
History of Present Illness Primary Care Physician: No Primary Care Physician <ZakiaMayteDedra R - 10/07/18 06:50> No Primary Care Physician <Eduarda Gonzalez - 10/06/18 11:15> History of Present Illness: 47 year old male with PMH for previous GA (2015) presents with R sided flank pain that woke him up from sleep last night around 3 /4 AM in the morning. The pain felt like a stabbing pain located in his R flank area and radiated to the RLQ into the groin. Rated the pain a 10 out of 10 in severity. Constant pain. He tried to lay back down in bed, took alleve and used a heating pad but it had minimal relief. He came to the ED for further evaluation. He passed out during his last episode of nephrolithiasis so he is unsure about if the pain is similar to his previous kidney stone. He denies any fevers but felt hot and cold throughout the day yesterday. Did not urinate much yesterday. Has only urinated a minimal amount today. Drinking plenty of fluids. Confirms nasal congestion for three days, SOB due to his smoking and dizziness. Productive cough at baseline. Denies any CP, N/V, leg pain, blurry vision, headaches. Has not eaten since yesterday due to decreased appetite. Last BM was 2 days ago. In regards to recent diet changes, he has been drinking more ensure shakes for the last 4 weeks. Drinking 4-5 a day. Drinks zero glasses of water a day since he started the ensure shakes. Recent weight loss of 20 lbs in the last year. PMH: GA, Shingles, neuropathy, kidney stones (1995). PSH: Tonsillectomy A: NKDA Meds: none FH: GMA had lung cancer ( moms side). Dad has heart issues. SH: Lives at home with gf. No kids. Works with [employer] system. Smokes 1/2 ppd for 30 years. Does not consume alcohol. Denies street drugs. No recent travel. Sexually active with gf. No history of STDS. ROS: See HPI <Eduarda Gonzalez - 10/06/18 16:47> - Diagnosis (1) Kidney stone on right side (2) DVT prophylaxis (3) Nutrition, metabolism, and development symptoms <Dedra Koehler - 10/07/18 06:50> (1) Kidney stone on right side (2) DVT prophylaxis (3) Nutrition, metabolism, and development symptoms <YaryambarraulRosinaa - 10/06/18 16:48> Inpatient Certification: I certify that the inpatient services were ordered in accordance with Medicare regulations governing the order. This includes certification that hospital inpatient services are reasonable and necessary and in the case of services not specified as inpatient-only under 42 CFR 419.22(n), that they are appropriately provided as inpatient services in accordance to with the 2-midnight benchmark under 43 CFR 412.3(e) <Dedra Koehler - 10/07/18 06:50> PMFSH - History History Provided By: Patient <YaryambarraulEduarda - 10/06/18 11:15> - Medical History Medical History: Medical History (Last Updated 10/06/18 @ 05:42 by Sabrina Stokes RN) Patient denies significant medical history <Dedra Koehler 10/07/18 06:50> Medical History (Last Updated 10/06/18 @ 05:42 by Sabrina Stokes, VIV) Patient denies significant medical history <Eduarda Gonzalez - 10/06/18 11:15> - Surgical History Surgical History: Surgical History (Last Updated 10/06/18 @ 05:42 by Sabrina Stokes, RN) No history of previous surgery <Dedra Koehler - 10/07/18 06:50> Surgical History (Last Updated 10/06/18 @ 05:42 by Sabrina Stokes RN) No history of previous surgery <Eduarda Gonzalez - 10/06/18 11:15> - Tobacco History Tobacco Use In Past 30 Days: Yes <Eduarda Gonzalez - 10/06/18 11:15> Smoking Status: Current every day smoker <Eduarda Gonzalez - 10/06/18 11:15> Tobacco Type: Cigarettes <Eduarda Gonzalez - 10/06/18 11:15> - Alcohol History How Often Do You Have a Drink Containing Alcohol: Never <Eduarda Gonzalez - 05/17 11:15> - Substance Use History Substance History: Past History <Rosina Gonzaleza - 10/06/18 11:15> - Travel History Recent Travel in the [place] Within the Last 8 Weeks: No <Rodríguez Gonzalezantha - 11:15> Recent Travel Out of the Country Within the Last 8 Weeks: No <Rodríguez Gonzalezantha - 10/06/18 11:15> - Immunization History Tetanus Immunization: Unsure <YaryambarRodríguez carterEduarda - 10/06/18 11:15> Medications and Allergies Allergies Allergy/AdvReac Type Severity Reaction Status Date / Time No Known Allergies Allergy Uncoded 04/07/17 20:49 <Dedra Koehler - 10/07/18 06:50> Home Medications Medication Instructions Recorded Confirmed Type No Known Home Medications 10/06/18 10/06/18 History <Dedra Koehler - 10/07/18 06:50> Active Medications: Active Medications Acetaminophen (Tylenol) 650 mg PO Q4H PRN PRN Reason: Temp > 100.4 Hydrocodone Bitart/Acetaminophen (Boyce 7.5/325) 1 tab PO Q4H PRN PRN Reason: PAIN SCALE 6 TO 10 Last Admin: 10/07/18 02:23 Dose: 1 tab Hydrocodone Bitart/Acetaminophen (Boyce 5/325) 1 tab PO Q4H PRN PRN Reason: PAIN SCALE 3 TO 5 Al Hydroxide/Mg Hydroxide (Milk Of Magnesia Liq) 30 ml PO Q12H PRN PRN Reason: Mild Constipation Last Admin: 10/06/18 20:35 Dose: 30 ml Bisacodyl (Dulcolax Supp) 10 mg RECTAL DAILY PRN PRN Reason: SEVERE CONSITIPATION Hydromorphone HCl (Dilaudid Pf Inj) 1 mg IV.PUSH Q3H PRN PRN Reason: BREAKTHROUGH PAIN Last Admin: 10/07/18 06:16 Dose: 1 mg Sodium Chloride (Ns Inj) 1,000 mls @ 100 mls/hr IV.CONT .Q10H [facility] Last Admin: 10/07/18 00:07 Dose: 100 mls/hr Lactulose (Lactulose Liq) 30 ml PO DAILY PRN PRN Reason: SEVERE CONSITIPATION Naloxone HCl (Narcan Inj) 0.4 mg IV.PUSH UNSCH PRN PRN Reason: SEE LABEL COMMENTS Naloxone HCl (Narcan Inj) 0.4 mg IV.PUSH UNSCH PRN PRN Reason: SEE LABEL COMMENTS Ondansetron HCl (Zofran Inj) 4 mg IV.PUSH Q6H PRN PRN Reason: NAUSEA OR VOMITING Senna/Docusate Sodium (Lisandra-Colace) 1 tab PO BID [facility] Last Admin: 10/06/18 20:27 Dose: 1 tab Sennosides (Senokot) 17.2 mg PO Q12H PRN PRN Reason: Moderate Constipation Sodium Chloride (Ns Flush) 2 ml IV.FLUSH PRN PRN PRN Reason: FLUSH AFTER USING IV ACCESS Sodium Chloride (Ns Flush) 2 ml IV.FLUSH BID [facility] Last Admin: 10/06/18 20:27 Dose: 2 ml Tamsulosin HCl (Flomax) 0.4 mg PO DAILY [facility] Last Admin: 10/06/18 17:27 Dose: 0.4 mg <Dedra Koehler - 10/07/18 06:50> Active Medications Sodium Chloride (Ns Flush) 2 ml IV.FLUSH PRN PRN PRN Reason: FLUSH AFTER USING IV ACCESS <Eduarda Gonzalez - 10/06/18 11:15> Exam Vital signs: Vital Signs 10/06/18 10:00 10/06/18 13:08 10/06/18 16:00 Temperature 98 F 97.8 F Pulse Rate 60 52 L 64 Respiratory Rate 16 18 18 Blood Pressure 122/87 121/74 138/76 Pulse Oximetry 99 100 98 10/06/18 20:35 10/06/18 23:46 Temperature 98.6 F 99.3 F Pulse Rate 71 65 Respiratory Rate 18 16 Blood Pressure 114/69 126/78 Pulse Oximetry 98 96 Intake & Output 10/06/18 10/06/18 10/07/18 06:59 18:59 06:59 Intake Total 2860 / 2860 1000 / 1000 Output Total 100 / 100 250 / 250 Balance 2760 / 2760 750 / 750 Weight 61.235 kg 61.2 kg Intake: IV 1999 1000 / 1000 NS Inj 1,000 ML @ 100 mls/hr IV 1000 / 1000 .CONT .Q10H [facility] Rx#:[id number] NS Inj 1,000 ML @ 1000 mls/hr 1999 IV.SIG BOLUS [facility] Rx#:[id number] Oral 860 / 860 Output: Urine 100 / 100 250 / 250 Other: Date of Last Bowel Movement 10/05/18 # Bowel Movements 0 Weight On Admission 61.2 kg <Dedra Koehler [place] - 10/07/18 06:50> Vital Signs 10/06/18 05:41 10/06/18 06:11 10/06/18 10:00 Temperature 98.1 F Pulse Rate 59 L 65 60 Respiratory Rate 18 20 16 Blood Pressure 150/77 H 136/88 122/87 Pulse Oximetry 100 99 99 Intake & Output 10/05/18 10/06/18 10/06/18 18:59 06:59 18:59 Intake Total 1999 Balance 1999 Weight 61.235 kg Intake: IV 1999 NS Inj 1,000 ML @ 1000 mls/hr 1999 IV.SIG BOLUS [facility] Rx#:[id number] <Rosina Gonzaleza - 10/06/18 11:15> Narrative: GENERAL: Cachectic appearing male, moaning in pain, laying in bed. SKIN: Warm and dry. HEAD: Normocephalic. EYES: No scleral icterus. No injection or drainage. NECK: Supple, trachea midline. No JVD or lymphadenopathy. CARDIOVASCULAR: Regular rate and rhythm without murmurs, gallops, or rubs. RESPIRATORY: Breath sounds equal bilaterally. No accessory muscle use. GASTROINTESTINAL: Abdomen soft, nondistended, tenderness to palpation of the right lower quadrant. MUSCULOSKELETAL: No cyanosis, or edema. BACK: Nontender without obvious deformity. Right CVA tenderness. <CarlosEduarda - 10/06/18 16:47> Results - Labs Result diagrams: 10/07/18 05:02 10/07/18 05:02 <Dedra Koehler [place] - 10/07/18 06:50> Abnormal lab results 10/06/18 10/06/18 10/07/18 Range/Units 06:10 06:33 05:02 RBC 3.85 L (4.50-5.90) mil/mm3 Hct 38.7 L (39.0-51.0) % MCV 100.5 H (80.0-100.0) fL MCH 34.8 H (27.0-34.0) pg Plt Count 129 L (150-450) th/mm3 [place] % (Auto) 10.3 H (0.0-8.0) % Eos % (Auto) 7.4 H (0.0-4.0) % Eos # (Auto) 0.6 H (0.0-0.4) th/mm3 Chloride 110 H (98-107) meq/L Anion Gap 4 L (5-15) meq/L Creatinine (0.60-1.30) mg/dL Estimated GFR 73 L (>89) mL/min Calcium 8.3 L (8.5-10.1) mg/dL Urine Occult Blood Moderate H (Negative) Urine RBC 9 H (0-3) /hpf Urine Mucus Few H (Occasional) /lpf 10/07/18 Range/Units 05:02 RBC (4.50-5.90) mil/mm3 Hct (39.0-51.0) % MCV (80.0-100.0) fL MCH (27.0-34.0) pg Plt Count (150-450) th/mm3 Winston % (Auto) (0.0-8.0) % Eos % (Auto) (0.0-4.0) % Eos # (Auto) (0.0-0.4) th/mm3 Chloride (98-107) meq/L Anion Gap (5-15) meq/L Creatinine 1.60 H (0.60-1.30) mg/dL Estimated GFR 47 L (>89) mL/min Calcium 7.8 L (8.5-10.1) mg/dL Urine Occult Blood (Negative) Urine RBC (0-3) /hpf Urine Mucus (Occasional) /lpf Short CBC 10/07/18 Range/Units 05:02 WBC 8.0 (4.0-11.0) th/mm3 Hgb 13.4 D (13.0-17.0) gm/dL Hct 38.7 L (39.0-51.0) % Plt Count 129 L (150-450) th/mm3 BMP 10/06/18 10/07/18 06:10 05:02 Sodium 143 142 Potassium 4.5 4.6 Chloride 110 H 107 Carbon Dioxide 29.3 30.3 BUN 15 18 Creatinine 1.08 1.60 H Calcium 8.3 L 7.8 L Liver Function 10/06/18 10/07/18 Range/Units 06:10 05:02 Total Bilirubin 0.3 0.5 (0.2-1.0) mg/dL AST 20 31 (15-37) U/L ALT 21 28 (12-78) U/L Alkaline Phosphatase 58 49 (45-117) U/L Albumin 3.9 3.4 (3.4-5.0) g/dL Urine 10/06/18 Range/Units 06:33 Urine Color Yellow (Yellw/Straw) Urine Clarity Clear (Clear) Urine pH 5.0 (5.0-8.5) Ur Specific [place] 1.018 (1.002-1.035) Urine Protein Negative (Neg-Trace) mg/dL Urine Glucose (UA) Negative (Negative) mg/dL <Dedra Koehler R - 10/07/18 06:50> Abnormal lab results 10/06/18 10/06/18 10/06/18 Range/Units 06:10 06:10 06:33 MCH 35.1 H (27.0-34.0) pg Eos % (Auto) 15.3 H (0.0-4.0) % Eos # (Auto) 0.8 H (0.0-0.4) th/mm3 Chloride 110 H (98-107) meq/L Anion Gap 4 L (5-15) meq/L Estimated GFR 73 L (>89) mL/min Calcium 8.3 L (8.5-10.1) mg/dL Urine Occult Blood Moderate H (Negative) Urine RBC 9 H (0-3) /hpf Urine Mucus Few H (Occasional) /lpf Short CBC 10/06/18 Range/Units 06:10 WBC 5.4 (4.0-11.0) th/mm3 Hgb 15.8 (13.0-17.0) gm/dL Hct 44.9 (39.0-51.0) % Plt Count 165 (150-450) th/mm3 BMP 10/06/18 06:10 Sodium 143 Potassium 4.5 Chloride 110 H Carbon Dioxide 29.3 BUN 15 Creatinine 1.08 Calcium 8.3 L Liver Function 10/06/18 Range/Units 06:10 Total Bilirubin 0.3 (0.2-1.0) mg/dL AST 20 (15-37) U/L ALT 21 (12-78) U/L Alkaline Phosphatase 58 (45-117) U/L Albumin 3.9 (3.4-5.0) g/dL Urine 10/06/18 Range/Units 06:33 Urine Color Yellow (Yellw/Straw) Urine Clarity Clear (Clear) Urine pH 5.0 (5.0-8.5) Ur Specific [place] 1.018 (1.002-1.035) Urine Protein Negative (Neg-Trace) mg/dL Urine Glucose (UA) Negative (Negative) mg/dL <Eduarda Gonzalez - 10/06/18 11:15> - Imaging Impressions Abdomen/Pelvis CT 10/06/18 07:25 CONCLUSION: 1. There is right hydronephrosis and hydroureter caused by a 5 x 3 mm stone in the right proximal ureter. Additional nonobstructing stones are present within each kidney, as above. 2. Remainder of the examination demonstrates no acute abnormality. <Dedra Koehler - 10/07/18 06:50> Impressions Abdomen/Pelvis CT 10/06/18 07:25 CONCLUSION: 1. There is right hydronephrosis and hydroureter caused by a 5 x 3 mm stone in the right proximal ureter. Additional nonobstructing stones are present within each kidney, as above. 2. Remainder of the examination demonstrates no acute abnormality. <Eduarda Gonzalez - 10/06/18 11:15> Caprini VTE Risk Assessment Caprini VTE Risk Assessment: No/Low Risk (score <= 1) <Eduarda Gonzalez - 16:47> Caprini Risk Assessment Model: Point Value = 1 Point Value = 2 Point Value = 3 Point Value = 5 Age 41-60 Minor surgery BMI > 25 kg/m2 Swollen legs Varicose veins or History of unexplained or recurrent spontaneous Oral contraceptives or hormone replacement Sepsis (< 1 month) Serious lung disease, including pneumonia (< 1 month) Abnormal pulmonary function Acute myocardial infarction Congestive heart failure (< 1 month) History of inflammatory bowel disease Medical patient at bed rest Age 61-74 Arthroscopic surgery Major open surgery (> 45 min) Laparoscopic surgery (> 45 min) Malignancy Confined to bed (> 72 hours) Immobilizing plaster cast Central venous access Age >= 75 History of VTE Family history of VTE Factor V Leiden Prothrombin [id number] Lupus anticoagulant Anticardiolipin antibodies Elevated serum homocysteine Heparin-induced thrombocytopenia Other congenital or acquired thrombophilia Stroke (< 1 month) Elective arthroplasty Hip, pelvis, or leg fracture Acute spinal cord injury (< 1 month) <Dedra Koehler - 10/07/18 06:50> Point Value = 1 Point Value = 2 Point Value = 3 Point Value = 5 Age 41-60 Minor surgery BMI > 25 kg/m2 Swollen legs Varicose veins or History of unexplained or recurrent spontaneous Oral contraceptives or hormone replacement Sepsis (< 1 month) Serious lung disease, including pneumonia (< 1 month) Abnormal pulmonary function Acute myocardial infarction Congestive heart failure (< 1 month) History of inflammatory bowel disease Medical patient at bed rest Age 61-74 Arthroscopic surgery Major open surgery (> 45 min) Laparoscopic surgery (> 45 min) Malignancy Confined to bed (> 72 hours) Immobilizing plaster cast Central venous access Age >= 75 History of VTE Family history of VTE Factor V Leiden Prothrombin [id number] Lupus anticoagulant Anticardiolipin antibodies Elevated serum homocysteine Heparin-induced thrombocytopenia Other congenital or acquired thrombophilia Stroke (< 1 month) Elective arthroplasty Hip, pelvis, or leg fracture Acute spinal cord injury (< 1 month) <Eduarda Gonzalez - 10/06/18 11:15> Prophylaxis Regimen: Total Risk Factor Score Risk Level Prophylaxis Regimen 0-1 Low Early ambulation 2 Moderate Order ONE of the following: *Sequential Compression Device (SCD) *Heparin 5000 units SQ BID 3-4 Higher Order ONE of the following medications: *Heparin 5000 units SQ TID *Enoxaparin/Lovenox 40 mg SQ daily (WT < 150 kg, CrCl > 30 mL/min) *Enoxaparin/Lovenox 30 mg SQ daily (WT < 150 kg, CrCl > 10-29 mL/min) *Enoxaparin/Lovenox 30 mg SQ BID (WT < 150 kg, CrCl > 30 mL/min) AND/OR *Sequential Compression Device (SCD) 5 or more Highest Order ONE of the following medications: *Heparin 5000 units SQ TID (Preferred with Epidurals) *Enoxaparin/Lovenox 40 mg SQ daily (WT < 150 kg, CrCl > 30 mL/min) *Enoxaparin/Lovenox 30 mg SQ daily (WT < 150 kg, CrCl > 10-29 mL/min) *Enoxaparin/Lovenox 30 mg SQ BID (WT < 150 kg, CrCl > 30 mL/min) AND *Sequential Compression Device (SCD) <Dedra Koehler - 10/07/18 06:50> Total Risk Factor Score Risk Level Prophylaxis Regimen 0-1 Low Early ambulation 2 Moderate Order ONE of the following: *Sequential Compression Device (SCD) *Heparin 5000 units SQ BID 3-4 Higher Order ONE of the following medications: *Heparin 5000 units SQ TID *Enoxaparin/Lovenox 40 mg SQ daily (WT < 150 kg, CrCl > 30 mL/min) *Enoxaparin/Lovenox 30 mg SQ daily (WT < 150 kg, CrCl > 10-29 mL/min) *Enoxaparin/Lovenox 30 mg SQ BID (WT < 150 kg, CrCl > 30 mL/min) AND/OR *Sequential Compression Device (SCD) 5 or more Highest Order ONE of the following medications: *Heparin 5000 units SQ TID (Preferred with Epidurals) *Enoxaparin/Lovenox 40 mg SQ daily (WT < 150 kg, CrCl > 30 mL/min) *Enoxaparin/Lovenox 30 mg SQ daily (WT < 150 kg, CrCl > 10-29 mL/min) *Enoxaparin/Lovenox 30 mg SQ BID (WT < 150 kg, CrCl > 30 mL/min) AND *Sequential Compression Device (SCD) <Eduarda Gonzalez - 10/06/18 11:15> Assessment and Plan - Assessment (1) Kidney stone on right side Code(s): N20.0 - Calculus of kidney Status: Acute (2) DVT prophylaxis Status: Acute (3) Nutrition, metabolism, and development symptoms Code(s): R63.8 - Other symptoms and signs concerning food and fluid intake Status: Acute <Dedra Koehler - 10/07/18 06:50> (1) Kidney stone on right side Code(s): N20.0 - Calculus of kidney Status: Acute Plan: 47-year-old male with past medical history of kidney stones, presents with acute right-sided flank pain. -8 mg morphine, 1 mg Dilaudid and 30 mg ketorolac given in the ED. Pain well controlled during physical exam. -CT abdomen shows right hydronephrosis and hydroureter caused by 5 x 3 mm stone in the right proximal ureter. -Urology consulted. Recommends Flomax 0.4 mg daily. -Encourage p.o. intake. Placed on maintenance fluids, normal saline at 100 mils /hour. -Pain control: Boyce 5 mg every 4 for pain scale 3-5 Boyce 7.5 mg every 4 hours for pain scale 6-10. Dilaudid 1 mg IV for breakthrough pain. Monitor I's and O's. -Follow-up CBC and CMP in a.m. -Encourage stool softeners. (2) DVT prophylaxis Status: Acute Plan: SCDs only. (3) Nutrition, metabolism, and development symptoms Code(s): R63.8 - Other symptoms and signs concerning food and fluid intake Status: Acute Plan: Fluids: Normal saline at 100 mils/hour. Electrolytes: Monitor and replete as needed Diet: Cardiac diet. <Eduarda Gonzalez - 10/06/18 16:48> - Assessment and Plan Stones presents with acute right flank pain which radiation into the right lower quadrant and right groin. CT abdomen positive for right hydronephrosis and hydroureter caused by 5 x 3 mm stone. UA unremarkable. Urology consulted, recommends fluids and Flomax 0.4 mg daily. Patient admitted for pain control of nephrolithiasis. <Eduarda Gonzalez - 10/06/18 16:47> - Attending Attestation Patient seen and examined with the resident team on 10/06/18. This is a late entry. Patient with 5mm renal stone. Admit to attempt to gain pain control. Possible need for urologic intervention if we cannot control his pain. If controlled on oral pain meds and flomax potential dc on 10/07/18 <Dedra Koehler - 10/07/18 06:50>
[2018-10-06] MEDS ORDERED: Naloxone Inj 0.4 MG/ML Vial IV.PUSH PRN ×2 (11:47→15:13)
[2018-10-06] MEDS ORDERED: Bisacodyl 10 MG Supp RECTAL PRN (11:47)
[2018-10-06] MEDS ORDERED: Acetaminophen 325 MG Tablet PO PRN (11:47)
--- NOTE | 2018-10-06 12:10 | P.CONURO ---
History of Present Illness Service: Consult date: 10/06/18 Requesting Physician: Sunshine Echeverria Primary Care Provider: No Primary Care Physician History of Present Illness: 47-year-old gentleman with history of spontaneous renal calculus passage in the past who presents now with acute onset right flank pain. Patient reports that the flank pain began early this morning. Preliminary ER evaluation included a CT scan stone protocol that demonstrated a 5 mm right proximal ureteral calculus causing right hydronephrosis. There also bilateral much smaller renal calculi noted. At the time of consultation the patient was having significant pain and was thus being admitted to observation for pain control. He denied having a fever or hematuria. Review of Systems All other systems reviewed negative except as stated in HPI PMFSH - History History Provided By: Patient - Medical History Medical History: Medical History (Last Updated 10/06/18 @ 05:42 by Sabrina Stokes RN) Patient denies significant medical history - Surgical History Surgical History: Surgical History (Last Updated 10/06/18 @ 05:42 by Sabrina Stokes RN) No history of previous surgery - Tobacco History Tobacco Use In Past 30 Days: Yes Smoking Status: Current every day smoker Tobacco Type: Cigarettes - Alcohol History How Often Do You Have a Drink Containing Alcohol: Never - Substance Use History Substance History: Past History - Travel History Recent Travel in the [place] Within the Last 8 Weeks: No Recent Travel Out of the Country Within the Last 8 Weeks: No - Immunization History Tetanus Immunization: Unsure Medications and Allergies Active Medications: Active Medications Acetaminophen (Tylenol) 650 mg PO Q4H PRN PRN Reason: Temp > 100.4 Al Hydroxide/Mg Hydroxide (Milk Of Magnesia Liq) 30 ml PO Q12H PRN PRN Reason: Mild Constipation Bisacodyl (Dulcolax Supp) 10 mg RECTAL DAILY PRN PRN Reason: SEVERE CONSITIPATION Hydromorphone HCl (Dilaudid Pf Inj) 1 mg IV.PUSH Q3H PRN PRN Reason: BREAKTHROUGH PAIN Sodium Chloride (Ns Inj) 1,000 mls @ 100 mls/hr IV.CONT .Q10H [facility] Lactulose (Lactulose Liq) 30 ml PO DAILY PRN PRN Reason: SEVERE CONSITIPATION Naloxone HCl (Narcan Inj) 0.4 mg IV.PUSH UNSCH PRN PRN Reason: SEE LABEL COMMENTS Ondansetron HCl (Zofran Inj) 4 mg IV.PUSH Q6H PRN PRN Reason: NAUSEA OR VOMITING Senna/Docusate Sodium (Lisandra-Colace) 1 tab PO BID [facility] Sennosides (Senokot) 17.2 mg PO Q12H PRN PRN Reason: Moderate Constipation Sodium Chloride (Ns Flush) 2 ml IV.FLUSH PRN PRN PRN Reason: FLUSH AFTER USING IV ACCESS Sodium Chloride (Ns Flush) 2 ml IV.FLUSH PRN PRN PRN Reason: FLUSH AFTER USING IV ACCESS Sodium Chloride (Ns Flush) 2 ml IV.FLUSH BID [facility] Allergies Allergy/AdvReac Type Severity Reaction Status Date / Time No Known Allergies Allergy Uncoded 04/07/17 20:49 Home Medications Medication Instructions Recorded Confirmed Type No Known Home Medications 10/06/18 10/06/18 History Physical Exam Vital Signs - 24 hr 10/06/18 05:41 10/06/18 06:11 10/06/18 10:00 Temperature 98.1 F Pulse Rate 59 L 65 60 Respiratory Rate 18 20 16 Blood Pressure 150/77 H 136/88 122/87 Pulse Oximetry 100 99 99 Physical Exam: GENERAL: This is a well-nourished, well-developed patient, in no apparent distress. SKIN: No rashes, ecchymoses or lesions. Cool and dry. HEAD: Atraumatic. Normocephalic. No temporal or scalp tenderness. EYES: Pupils equal round and reactive. Extraocular motions intact. No scleral icterus. No injection or drainage. ENT: Nose without bleeding, purulent drainage or septal hematoma. Throat without erythema, tonsillar hypertrophy or exudate. Uvula midline. Airway patent. NECK: Trachea midline. No JVD or lymphadenopathy. Supple, nontender, no meningeal signs. CARDIOVASCULAR: Regular rate and rhythm without murmurs, gallops, or rubs. RESPIRATORY: Clear to auscultation. Breath sounds equal bilaterally. No wheezes , rales, or rhonchi. GASTROINTESTINAL: Abdomen soft, non-tender, nondistended. No hepato-splenomegaly , or palpable masses. No guarding. GENITOURINARY: No CVA tenderness, bladder not distended MUSCULOSKELETAL: Extremities without clubbing, cyanosis, or edema. No joint tenderness, effusion, or edema noted. No calf tenderness. Negative Homans sign bilaterally. NEUROLOGICAL: Awake and alert. Cranial nerves II through XII intact. Motor and sensory grossly within normal limits. Five out of 5 muscle strength in all muscle groups. Normal speech. Laboratory Results - last 24 hr 10/06/18 10/06/18 10/06/18 06:10 06:10 06:33 WBC 5.4 RBC 4.50 Hgb 15.8 Hct 44.9 MCV 99.8 MCH 35.1 H MCHC 35.1 RDW 13.5 Plt Count 165 MPV 9.2 Neut % (Auto) 38.4 Lymph % (Auto) 37.9 [place] % (Auto) 7.4 Eos % (Auto) 15.3 H Baso % (Auto) 1.0 Neut # (Auto) 2.1 Lymph # (Auto) 2.0 [place] # (Auto) 0.4 Eos # (Auto) 0.8 H Baso # (Auto) 0.1 WBC Differential . Differential Comment Auto diff final Sodium 143 Potassium 4.5 Chloride 110 H Carbon Dioxide 29.3 Anion Gap 4 L BUN 15 Creatinine 1.08 Estimated GFR 73 L Random Glucose 91 Calcium 8.3 L Magnesium 2.3 Total Bilirubin 0.3 AST 20 ALT 21 Alkaline Phosphatase 58 Total Protein 7.7 Albumin 3.9 Lipase 144 Urine Color Yellow Urine Clarity Clear Urine pH 5.0 Ur Specific [place] 1.018 Urine Protein Negative Urine Glucose (UA) Negative Urine Ketones Negative Urine Occult Blood Moderate H Urine Nitrate Negative Urine Bilirubin Negative Urine Urobilinogen Less than 2 Ur Leukocyte Esterase Negative Urine RBC 9 H Urine WBC 1 Ur Squamous Epith Cells <1 Urine Mucus Few H Micro UA Comment Culture not ind Ur Microscopic Review Not Reportable Urine Culture Comments Culture not ind Result Diagrams: 10/06/18 06:10 10/06/18 06:10 Imaging: ITS Impressions Abdomen/Pelvis CT 10/06/18 07:25 CONCLUSION: 1. There is right hydronephrosis and hydroureter caused by a 5 x 3 mm stone in the right proximal ureter. Additional nonobstructing stones are present within each kidney, as above. 2. Remainder of the examination demonstrates no acute abnormality. Actual CT scan images were reviewed and I concur with the radiologist impression. Assessment and Plan - Assessment (1) Ureteral calculus, right Code(s): N20.1 - Calculus of ureter Status: Acute (2) Renal calculus, bilateral Code(s): N20.0 - Calculus of kidney Status: Acute - Plan Urologic impression: 1. Right flank pain related to an obstructing 5 mm right proximal ureteral calculus causing hydronephrosis. Due to the small size of the stone, there is a good chance that it will pass spontaneously. 2. Bilateral small renal calculi Plan: 1. Agree with admission to observation for monitoring of pain management 2. Strain all urine 3. Flomax 0.4 mg by mouth daily 4. Okay to discharge patient home tomorrow if pain managed with oral meds and vital signs are stable with office follow-up sometime next week [phone].
[2018-10-06] MEDS: HYDROmorphone PF Inj 1 MG/ML Ampul IV.PUSH PRN ×3 (14:11→20:27)
[2018-10-06] MEDS: Sod Chloride 0.9% Inj 1,000 ML IV.CONT SCH (14:21)
[2018-10-06] MEDS ORDERED: Influenza (Quadrivalent) Vaccine 0.5 ML Syringe IM ONE (18:00)
[2018-10-06] MEDS: Senna/Docusate Sodium 8.6/50 MG Tablet PO SCH (20:27)
[2018-10-07] MEDS: Sod Chloride 0.9% Inj 1,000 ML IV.CONT SCH ×3 (00:07→18:05)
[2018-10-07] MEDS: HYDROmorphone PF Inj 1 MG/ML Ampul IV.PUSH PRN ×7 (03:12→21:09)
[2018-10-07 06:08] LABS: Baso % (Auto) 0.4 % (0.0-2.0); Eos # (Auto) 0.6 th/mm3 (0.0-0.4); Eos % (Auto) 7.4 % (0.0-4.0); Hematocrit 38.7 % (39.0-51.0); Hemoglobin 13.4 gm/dL (13.0-17.0); Lymph # (Auto) 1.9 th/mm3 (1.0-4.8); Lymph % (Auto) 23.3 % (9.0-44.0); Mean Corpuscular HGB Conc 34.6 % (32.0-36.0); Mean Corpuscular Hemoglobin 34.8 pg (27.0-34.0); Mean Corpuscular Volume 100.5 fL (80.0-100.0); Mean Platelet Volume 9.3 fL (7.0-11.0); Mono # (Auto) 0.8 th/mm3 (0.0-0.9); Mono % (Auto) 10.3 % (0.0-8.0); Neut # (Auto) 4.7 th/mm3 (1.8-7.7); Neut % (Auto) 58.6 % (16.0-70.0); Platelet Count 129 th/mm3 (150-450); Red Blood Count 3.85 mil/mm3 (4.50-5.90); Red Cell Distribution Width 13.5 % (11.6-17.2)
[2018-10-07 06:31] LABS: Alanine Aminotransferase 28 U/L (12-78); Albumin 3.4 g/dL (3.4-5.0); Anion Gap 5 meq/L (5-15); Aspartate Aminotransferase 31 U/L (15-37); Blood Urea Nitrogen 18 mg/dL (7-18); Calcium 7.8 mg/dL (8.5-10.1); Carbon Dioxide 30.3 meq/L (21.0-32.0); Chloride 107 meq/L (98-107); Glomerular Filtration Rate 47 mL/min (>89); Glucose,Random 105 mg/dL (74-106); Potassium 4.6 meq/L (3.5-5.1); Sodium 142 meq/L (136-145)
[2018-10-07 06:33] LABS: Alkaline Phosphatase 49 U/L (45-117); Total Protein 6.4 g/dL (6.4-8.2)
[2018-10-07] MEDS: Senna/Docusate Sodium 8.6/50 MG Tablet PO SCH ×2 (08:16→20:26)
--- NOTE | 2018-10-07 11:44 | P.PNURO ---
Subjective Patient symptoms today: Patient reports pain improved today. Believes he passed a few very tiny stone fragments. Denies hematuria Objective Vital Signs: Vital Signs 10/06/18 13:08 10/06/18 16:00 10/06/18 20:35 Temperature 98 F 97.8 F 98.6 F Pulse Rate 52 L 64 71 Respiratory Rate 18 18 18 Blood Pressure 121/74 138/76 114/69 Pulse Oximetry 100 98 98 10/06/18 23:46 10/07/18 05:15 10/07/18 08:00 Temperature 99.3 F 97.8 F 97.4 F L Pulse Rate 65 55 L 58 L Respiratory Rate 16 16 12 Blood Pressure 126/78 119/75 116/64 Pulse Oximetry 96 98 98 10/07/18 10:11 Temperature Pulse Rate Respiratory Rate 16 Blood Pressure Pulse Oximetry Intake & Output 10/06/18 10/07/18 10/07/18 18:59 06:59 18:59 Intake Total 2860 / 2860 1000 / 1000 1000 / 1000 Output Total 100 / 100 250 / 250 Balance 2760 / 2760 750 / 750 1000 / 1000 Weight 61.2 kg 57.5 kg Intake: IV 2000 / 1999 1000 / 1000 1000 / 1000 NS Inj 1,000 ML @ 100 mls/hr IV 1000 / 1000 1000 / 1000 .CONT .Q10H [facility] Rx#:[id number] NS Inj 1,000 ML @ 1000 mls/hr 2000 / 2000 IV.SIG BOLUS [facility] Rx#:[id number] Oral 860 / 860 Output: Urine 100 / 100 250 / 250 Other: # Voids 2 Date of Last Bowel Movement 10/05/18 # Bowel Movements 0 Weight On Admission 61.2 kg Result Diagrams: 10/07/18 05:02 10/07/18 05:02 Other Results: Abdomen soft, nondistended, nontender Bladder not distended No CVA tenderness Medications and IVs: Active Medications Generic Name Dose Route Start Last Admin Trade Name Freq PRN Reason Stop Dose Admin Acetaminophen 650 mg 10/06/18 11:47 Tylenol PO Q4H PRN Temp > 100.4 Hydrocodone Bitart/Acetaminophen 1 tab 10/06/18 15:13 10/07/18 11:41 Biggers 7.5/325 PO 1 tab Q4H PRN Administration PAIN SCALE 6 TO 10 Hydrocodone Bitart/Acetaminophen 1 tab 10/06/18 15:13 [place]gers 5/325 PO Q4H PRN PAIN SCALE 3 TO 5 Al Hydroxide/Mg Hydroxide 30 ml 10/06/18 11:47 10/07/18 08:17 Milk Of Magnesia Liq PO 30 ml Q12H PRN Administration Mild Constipation Bisacodyl 10 mg 10/06/18 11:47 Dulcolax Supp RECTAL DAILY PRN SEVERE CONSITIPATION Hydromorphone HCl 1 mg 10/06/18 11:47 10/07/18 09:22 Dilaudid Pf Inj IV.PUSH 1 mg Q3H PRN Administration BREAKTHROUGH PAIN Sodium Chloride 1,000 mls @ 150 mls/hr 10/06/18 12:00 10/07/18 08:16 Ns Inj IV.CONT 100 mls/hr .Q6H40M [facility] Administration Lactulose 30 ml 10/06/18 11:47 Lactulose Liq PO DAILY PRN SEVERE CONSITIPATION Naloxone HCl 0.4 mg 10/06/18 11:47 Narcan Inj IV.PUSH UNSCH PRN SEE LABEL COMMENTS Naloxone HCl 0.4 mg 10/06/18 15:13 Narcan Inj IV.PUSH UNSCH PRN SEE LABEL COMMENTS Ondansetron HCl 4 mg 10/06/18 11:47 Zofran Inj IV.PUSH Q6H PRN NAUSEA OR VOMITING Senna/Docusate Sodium 1 tab 10/06/18 21:00 10/07/18 08:16 Lisandra-Colace PO 1 tab BID [facility] Administration Sennosides 17.2 mg 10/06/18 11:47 Senokot PO Q12H PRN Moderate Constipation Sodium Chloride 2 ml 10/06/18 11:47 Ns Flush IV.FLUSH PRN PRN FLUSH AFTER USING IV ACCESS Sodium Chloride 2 ml 10/06/18 21:00 10/07/18 08:17 Ns Flush IV.FLUSH Not Given BID [facility] Tamsulosin HCl 0.4 mg 10/06/18 15:00 10/07/18 08:16 Flomax PO 0.4 mg DAILY [facility] Administration Assessment and Plan - Assessment (1) Ureteral calculus, right Code(s): N20.1 - Calculus of ureter Status: Acute (2) Renal calculus, bilateral Code(s): N20.0 - Calculus of kidney Status: Acute - Plan Urologic impression: 1. Right flank pain related to an obstructing 5 mm right proximal ureteral calculus causing hydronephrosis. Due to the small size of the stone, there is a good chance that it will pass spontaneously. 2. Bilateral small renal calculi Plan: 1. Discharge home if pain managed with oral medication alone 2. Patient to continue to strain all urine 3. Continue with Flomax 0.4 mg by mouth daily 4. Office follow-up sometime next week [phone].
--- NOTE | 2018-10-07 12:33 | P.PNFP ---
Subjective Interval history: Patient seen and examined at bedside this morning. He continues to have right-sided flank pain but has been improving with the medications. He is able to walk around and go to the bathroom. He has been voiding frequently overnight. Believes he has passed a couple of sediments throughout the night. He denies any chest pain, shortness of breath or leg pain today. Had one bowel movement overnight. All questions were answered at bedside. <Eduarda Gonzalez - 10/07/18 12:35> Results - Labs Result diagrams: 10/07/18 05:02 10/08/18 05:19 <Dedra Koehler - 10/08/18 10:16> Abnormal lab results 10/07/18 10/08/18 Range/Units 14:49 05:19 Chloride 109 H (98-107) meq/L Creatinine 1.44 H 1.48 H (0.60-1.30) mg/dL Estimated GFR 53 L 51 L (>89) mL/min Calcium 7.7 L (8.5-10.1) mg/dL [facility] 10/07/18 10/08/18 14:49 05:19 Sodium 140 Potassium 4.2 Chloride 109 H Carbon Dioxide 22.1 BUN 12 Creatinine 1.44 H 1.48 H Calcium 7.7 L <Dedra Koehler - 10/08/18 10:16> Abnormal lab results 10/07/18 10/07/18 Range/Units 05:02 05:02 RBC 3.85 L (4.50-5.90) mil/mm3 Hct 38.7 L (39.0-51.0) % MCV 100.5 H (80.0-100.0) fL MCH 34.8 H (27.0-34.0) pg Plt Count 129 L (150-450) th/mm3 [place] % (Auto) 10.3 H (0.0-8.0) % Eos % (Auto) 7.4 H (0.0-4.0) % Eos # (Auto) 0.6 H (0.0-0.4) th/mm3 Creatinine 1.60 H (0.60-1.30) mg/dL Estimated GFR 47 L (>89) mL/min Calcium 7.8 L (8.5-10.1) mg/dL Short CBC 10/07/18 Range/Units 05:02 WBC 8.0 (4.0-11.0) th/mm3 Hgb 13.4 D (13.0-17.0) gm/dL Hct 38.7 L (39.0-51.0) % Plt Count 129 L (150-450) th/mm3 BMP 10/07/18 05:02 Sodium 142 Potassium 4.6 Chloride 107 Carbon Dioxide 30.3 BUN 18 Creatinine 1.60 H Calcium 7.8 L Liver Function 10/07/18 Range/Units 05:02 Total Bilirubin 0.5 (0.2-1.0) mg/dL AST 31 (15-37) U/L ALT 28 (12-78) U/L Alkaline Phosphatase 49 (45-117) U/L Albumin 3.4 (3.4-5.0) g/dL <Eduarda Gonzalez - 10/07/18 12:33> Physical Exam Vital signs: Vital Signs 10/07/18 12:00 10/07/18 15:35 10/07/18 16:00 Temperature 98.0 F 97.9 F Pulse Rate 59 L 59 L 63 Respiratory Rate 12 16 12 Blood Pressure 119/75 116/70 Pulse Oximetry 98 96 10/07/18 19:38 10/07/18 20:10 10/08/18 00:45 Temperature 97.9 F 98 F Pulse Rate 63 78 71 Respiratory Rate 18 18 18 Blood Pressure 141/77 H 132/74 Pulse Oximetry 99 97 10/08/18 05:02 Temperature Pulse Rate 65 Respiratory Rate 18 Blood Pressure Pulse Oximetry Intake & Output 10/07/18 10/08/18 10/08/18 18:59 06:59 18:59 Intake Total 2480 / 2480 1100 / 1100 1000 / 1000 Output Total 800 / 800 Balance 1680 / 1680 1100 / 1100 1000 / 1000 Weight 61.2 kg Intake: IV 1999 / 1999 1000 / 1000 1000 / 1000 NS Inj 1,000 ML @ 150 mls/hr IV 2000 / 2000 1000 / 1000 1000 / 1000 .CONT .Q6H40M COUNTS INCLUDE 234 BEDS AT [facility] Rx#:[id number] Oral 480 / 480 100 / 100 Output: Urine 800 / 800 Other: # Voids 5 4 Date of Last Bowel Movement 10/07/18 10/07/18 # Bowel Movements 1 <Dedra Koehler - 10/08/18 10:16> Vital Signs 10/06/18 13:08 10/06/18 16:00 10/06/18 20:35 Temperature 98 F 97.8 F 98.6 F Pulse Rate 52 L 64 71 Respiratory Rate 18 18 Blood Pressure 121/74 138/76 114/69 Pulse Oximetry 100 98 98 10/06/18 23:46 10/07/18 05:15 10/07/18 08:00 Temperature 99.3 F 97.8 F 97.4 F L Pulse Rate 65 55 L 58 L Respiratory Rate 16 16 12 Blood Pressure 126/78 119/75 116/64 Pulse Oximetry 96 98 98 10/07/18 10:11 Temperature Pulse Rate Respiratory Rate 16 Blood Pressure Pulse Oximetry Intake & Output 10/06/18 10/07/18 10/07/18 18:59 06:59 18:59 Intake Total 2860 / 2860 1000 / 1000 1000 / 1000 Output Total 100 / 100 250 / 250 400 / 400 Balance 2760 / 2760 750 / 750 600 / 600 Weight 61.2 kg 57.5 kg Intake: IV 1999 / 1999 1000 / 1000 1000 / 1000 NS Inj 1,000 ML @ 100 mls/hr IV 1000 / 1000 1000 / 1000 .CONT .Q10H [facility] Rx#:[id number] NS Inj 1,000 ML @ 1000 mls/hr 1999 / 2000 IV.SIG BOLUS [facility] Rx#:[id number] Oral 860 / 860 Output: Urine 100 / 100 250 / 250 400 / 400 Other: # Voids 1 Date of Last Bowel Movement 10/05/18 # Bowel Movements 0 Weight On Admission 61.2 kg <Eduarda Gonzalez - 10/07/18 12:33> Narrative: GENERAL: Cachectic appearing male, moaning in pain, laying in bed. SKIN: Warm and dry. HEAD: Normocephalic. EYES: No scleral icterus. No injection or drainage. NECK: Supple, trachea midline. No JVD or lymphadenopathy. CARDIOVASCULAR: Regular rate and rhythm without murmurs, gallops, or rubs. RESPIRATORY: Scattered wheezes bilaterally. No accessory muscle use. GASTROINTESTINAL: Abdomen soft, nondistended, tenderness to palpation of the right lower quadrant. MUSCULOSKELETAL: No cyanosis, or edema. BACK: Nontender without obvious deformity. Minimal right CVA tenderness. <Eduarda Gonzalez - 10/07/18 12:37> Assessment and Plan - Assessment (1) Kidney stone on right side Code(s): N20.0 - Calculus of kidney Status: Acute (2) Wheezing Code(s): R06.2 - Wheezing Status: Acute (3) DVT prophylaxis Status: Acute (4) Nutrition, metabolism, and development symptoms Code(s): R63.8 - Other symptoms and signs concerning food and fluid intake Status: Acute <HildaloydDedra R - 10/08/18 10:16> (1) Kidney stone on right side Code(s): N20.0 - Calculus of kidney Status: Acute Plan: 47-year-old male with past medical history of kidney stones, presents with acute right-sided flank pain. -8 mg morphine, 1 mg Dilaudid and 30 mg ketorolac given in the ED. Pain well controlled during physical exam. -CT abdomen shows right hydronephrosis and hydroureter caused by 5 x 3 mm stone in the right proximal ureter. -Urology consulted. Recommends Flomax 0.4 mg daily. -Pain control: [place] 5 mg every 4 for pain scale 3-5 [place] 7.5 mg every 4 hours for pain scale 6-10. Dilaudid 1 mg IV for breakthrough pain. Monitor I's and O's. 10/07: Creatinine increased from 1.08 to 1.6 this morning. Increase maintenance fluids to 150 mils/hour. Repeat creatinine in p.m. If creatinine has decreased, and pain is well controlled on oral medications. Will DC home in p.m. on oral medications for pain control. (2) Wheezing Code(s): R06.2 - Wheezing Status: Acute Plan: Duo nebs ordered (3) DVT prophylaxis Status: Acute Plan: SCDs only. (4) Nutrition, metabolism, and development symptoms Code(s): R63.8 - Other symptoms and signs concerning food and fluid intake Status: Acute Plan: Fluids: Normal saline at 150 mils/hour. Electrolytes: Monitor and replete as needed Diet: Cardiac diet. <Eduarda Gonzalez - 10/07/18 12:38> - Assessment and Plan Stones presents with acute right flank pain which radiation into the right lower quadrant and right groin. CT abdomen positive for right hydronephrosis and hydroureter caused by 5 x 3 mm stone. UA unremarkable. Urology consulted, recommends fluids and Flomax 0.4 mg daily. Patient admitted for pain control of nephrolithiasis. <Eduarda Gonzalez - 10/07/18 12:33> Discussed Condition With: Dr. Koehler and Dr. Ojeda <Eduarda Gonzalez - 10/07/18 12:34> - Attending Attestation Pt seen and dw the resident team. Agree with the assessment and plan <Dedra Koehler - 10/08/18 10:16>
[2018-10-07] MEDS ORDERED: Ketorolac Inj 30 MG/ML (IVP) Vial IV.PUSH PRN (21:28)
[2018-10-07] MEDS: Temazepam 15 MG Capsule PO PRN (21:58)
[2018-10-08] MEDS: HYDROmorphone PF Inj 1 MG/ML Ampul IV.PUSH PRN ×8 (00:14→21:52)
[2018-10-08] MEDS: Sod Chloride 0.9% Inj 1,000 ML IV.CONT SCH ×4 (01:01→21:52)
[2018-10-08 06:26] LABS: Calcium 7.7 mg/dL (8.5-10.1); Carbon Dioxide 22.1 meq/L (21.0-32.0); Potassium 4.2 meq/L (3.5-5.1)
[2018-10-08] MEDS: Senna/Docusate Sodium 8.6/50 MG Tablet PO SCH ×2 (08:43→20:31)
[2018-10-08] MEDS ORDERED: Morphine Sulfate Inj 2 MG/ML Vial IV.PUSH PRN (09:44)
--- NOTE | 2018-10-08 10:22 | P.PNFP ---
Subjective Interval history: No acute events overnight. Patient states that he did see a possible stone in the strain urine. He states his pain continues to be excruciating states the p.o. pain medicines have not been helping. He denies any fever, chills, chest pain, shortness of breath, abdominal pain. He does continue to endorse right- sided flank pain. <Erasto Connell B - 10/08/18 12:01> Results - Labs Result diagrams: 10/09/18 04:48 10/09/18 04:48 <Dedra Koehler R - 10/09/18 17:15> Abnormal lab results 10/09/18 10/09/18 Range/Units 04:48 04:48 RBC 3.34 L (4.50-5.90) mil/mm3 Hgb 11.6 L (13.0-17.0) gm/dL Hct 33.1 L (39.0-51.0) % MCH 34.7 H (27.0-34.0) pg Plt Count 88 L D (150-450) th/mm3 Thomas % (Auto) 10.7 H (0.0-8.0) % Eos % (Auto) 9.9 H (0.0-4.0) % Eos # (Auto) 0.5 H (0.0-0.4) th/mm3 Chloride 109 H (98-107) meq/L Creatinine 1.35 H (0.60-1.30) mg/dL Estimated GFR 57 L (>89) mL/min Calcium 7.8 L (8.5-10.1) mg/dL Short CBC 10/09/18 Range/Units 04:48 WBC 5.2 (4.0-11.0) th/mm3 Hgb 11.6 L (13.0-17.0) gm/dL Hct 33.1 L (39.0-51.0) % Plt Count 88 L D (150-450) th/mm3 BMP 10/09/18 04:48 Sodium 141 Potassium 4.6 Chloride 109 H Carbon Dioxide 26.8 BUN 9 Creatinine 1.35 H Calcium 7.8 L <Dedra Koehler R - 10/09/18 17:15> Abnormal lab results 10/07/18 10/08/18 Range/Units 14:49 05:19 Chloride 109 H (98-107) meq/L Creatinine 1.44 H 1.48 H (0.60-1.30) mg/dL Estimated GFR 53 L 51 L (>89) mL/min Calcium 7.7 L (8.5-10.1) mg/dL BMP 10/07/18 10/08/18 14:49 05:19 Sodium 140 Potassium 4.2 Chloride 109 H Carbon Dioxide 22.1 BUN 12 Creatinine 1.44 H 1.48 H Calcium 7.7 L <Erasto Connell B - 10/08/18 10:22> - Imaging Impressions Abdomen X-Ray 10/09/18 00:00 CONCLUSION: Right double-J stent in good position. <Dedra Koehler R - 10/09/18 17:15> Physical Exam Vital signs: Vital Signs 10/08/18 20:15 10/09/18 00:35 10/09/18 05:25 Temperature 99.4 F 96 F L 98.3 F Pulse Rate 71 75 65 Respiratory Rate 18 18 18 Blood Pressure 129/66 126/68 117/62 Pulse Oximetry 98 96 99 10/09/18 08:00 10/09/18 13:00 10/09/18 13:15 Temperature 98.4 F 97.5 F L Pulse Rate 61 74 75 Respiratory Rate 19 16 16 Blood Pressure 113/69 107/52 L 108/56 L Pulse Oximetry 99 97 100 10/09/18 13:30 10/09/18 14:00 10/09/18 14:19 Temperature 98.0 F Pulse Rate 77 60 60 Respiratory Rate 20 20 20 Blood Pressure 152/91 H 145/82 H 145/83 H Pulse Oximetry 100 95 96 Intake & Output 10/08/18 10/09/18 10/09/18 18:59 06:59 18:59 Intake Total 2720 / 2720 1680 / 1680 1000 / 1000 Output Total 1500 / 1500 300 / 300 Balance 2720 / 2720 180 / 180 700 / 700 Weight 62.5 kg Intake: IV 1999 / 1999 1000 / 1000 1000 / 1000 NS Inj 1,000 ML @ 150 mls/hr IV 1999 / 1999 1000 / 1000 1000 / 1000 .CONT .Q6H40M [facility] Rx#:[id number] Oral 720 / 720 680 / 680 Output: Urine 1500 / 1500 Urine Amount (Catheter) 300 / 300 Indwelling Urethral Catheter 300 / 300 Other: # Voids 9 3 Date of Last Bowel Movement 10/07/18 10/07/18 10/07/18 # Bowel Movements 0 <Dedra Koehler R - 10/09/18 17:15> Vital Signs 10/07/18 12:00 10/07/18 15:35 10/07/18 16:00 Temperature 98.0 F 97.9 F Pulse Rate 59 L 59 L 63 Respiratory Rate 12 16 12 Blood Pressure 119/75 116/70 Pulse Oximetry 98 96 10/07/18 19:38 10/07/18 20:10 10/08/18 00:45 Temperature 97.9 F 98 F Pulse Rate 63 78 71 Respiratory Rate 18 18 18 Blood Pressure 141/77 H 132/74 Pulse Oximetry 99 97 10/08/18 05:02 Temperature Pulse Rate 65 Respiratory Rate 18 Blood Pressure Pulse Oximetry Intake & Output 10/07/18 10/08/18 10/08/18 18:59 06:59 18:59 Intake Total 2480 / 2480 1100 / 1100 1000 / 1000 Output Total 800 / 800 Balance 1680 / 1680 1100 / 1100 1000 / 1000 Weight 61.2 kg Intake: IV 2000 / 2000 1000 / 1000 1000 / 1000 NS Inj 1,000 ML @ 150 mls/hr IV 2000 / 2000 1000 / 1000 1000 / 1000 .CONT .Q6H40M [facility] Rx#:[id number] Oral 480 / 480 100 / 100 Output: Urine 800 / 800 Other: # Voids 5 4 Date of Last Bowel Movement 10/07/18 10/07/18 # Bowel Movements 1 <Erasto Connell - 10/08/18 10:22> Narrative: GENERAL: Thin appearing male, moaning in pain, sitting up on the side of the bed. SKIN: Warm and dry. HEAD: Normocephalic. EYES: No scleral icterus. No injection or drainage. NECK: Supple, trachea midline. No JVD or lymphadenopathy. CARDIOVASCULAR: Regular rate and rhythm without murmurs, gallops, or rubs. RESPIRATORY: Clear to auscultation bilaterally. No accessory muscle use. GASTROINTESTINAL: Abdomen soft, nondistended, tenderness to palpation of the right lower quadrant -unchanged from prior exam. MUSCULOSKELETAL: No cyanosis, or edema. BACK: Nontender without obvious deformity. <Erasto Connell - 10/08/18 12:01> Assessment and Plan - Assessment (1) Kidney stone on right side Code(s): N20.0 - Calculus of kidney Status: Acute (2) Wheezing Code(s): R06.2 - Wheezing Status: Acute (3) Constipation Code(s): K59.00 - Constipation, unspecified Status: Acute (4) Pitting edema Code(s): R60.9 - Edema, unspecified Status: Acute (5) DVT prophylaxis Status: Acute (6) Nutrition, metabolism, and development symptoms Code(s): R63.8 - Other symptoms and signs concerning food and fluid intake Status: Acute <Dedra Koehler Katy - 10/09/18 17:15> (1) Kidney stone on right side Code(s): N20.0 - Calculus of kidney Status: Acute Plan: CT abdomen on admission showed right hydronephrosis and hydroureter caused by 5 x 3 mm stone in the right proximal ureter. -Urology consulted. Recommended Flomax 0.4 mg daily. Creatinine was elevated up to 1.6, decreased to 1.44 and is stable despite IV fluids at 150 mL/h -Patient reporting increased pain today and states that the p.o. pain medicines are not helping Starting morphine pain scale with allowed for breakthrough Ordering renal ultrasound to assess for worsening hydronephrosis and will contact urology if so Monitor I's and O's. (2) Wheezing Code(s): R06.2 - Wheezing Status: Acute Plan: Duo nebs ordered, improved (3) DVT prophylaxis Status: Acute Plan: SCDs only. (4) Nutrition, metabolism, and development symptoms Code(s): R63.8 - Other symptoms and signs concerning food and fluid intake Status: Acute Plan: Fluids: Normal saline at 150 mils/hour. Electrolytes: Monitor and replete as needed Diet: Cardiac diet. <Erasto Connell - 10/08/18 11:55> - Assessment and Plan Stones presents with acute right flank pain which radiation into the right lower quadrant and right groin. CT abdomen positive for right hydronephrosis and hydroureter caused by 5 x 3 mm stone. UA unremarkable. Urology consulted, recommends fluids and Flomax 0.4 mg daily. Patient admitted for pain control of nephrolithiasis. Creatinine increased after admission and patient's pain is poorly controlled on p.o. meds. Currently requiring IV pain medication and repeating renal ultrasound to assess for worsening hydronephrosis. <Erasto Connell B - 10/08/18 12:01> - Attending Attestation Patient seen and examined and dw the resident team. Agree with the assessment and plan <Dedra Koehler - 10/09/18 17:15>
--- NOTE | 2018-10-08 11:31 | US ---
EXAM DATE: 10/08/2018 11:21 AM EST AGE/SEX: 47 years / Male INDICATIONS: Flank pain. CLINICAL DATA: This is the patient's initial encounter. Patient reports that signs and symptoms have been present for 4 - 6 days and indicates a pain score of 7/10. MEDICAL/SURGICAL HISTORY: . Flank pain. None. [place] [facility] [place]/2018. . MEASUREMENTS: Right Kidney:__10.8 x 4.8 x 5.6 cm Left Kidney:__11.1 x 3.6 x 5.1 cm FINDINGS: Right Kidney: The right renal collecting system is moderately distended. Renal pelvis and proximal ur eter appear distended. There is increased echogenicity throughout the right renal cortex. Left Kidney: Normal echogenicity and cortical thickness. No mass or hydronephrosis. Bladder: Decompressed. Not well evaluated. Other: None. CONCLUSION: 1. Moderate right hydronephrosis and proximal hydroureter. 2. Normal left kidney and collecting system. Electronically signed by: Quang Cruz MD 10/08/2018 11:30 AM EST
[2018-10-08] MEDS: Morphine Inj 4 MG/ML Vial IV.PUSH PRN ×5 (12:04→23:28)
--- NOTE | 2018-10-08 18:00 | P.PNURO ---
Subjective Patient symptoms today: Patient continues to experience significant right flank pain not relieved with oral medication. Denies passing a renal calculus. Objective Vital Signs: Vital Signs 10/07/18 19:38 10/07/18 20:10 10/08/18 00:45 Temperature 97.9 F 98 F Pulse Rate 63 78 71 Respiratory Rate 18 18 18 Blood Pressure 141/77 H 132/74 Pulse Oximetry 99 97 10/08/18 05:02 10/08/18 08:00 10/08/18 12:00 Temperature 98.2 F 97.8 F Pulse Rate 65 73 75 Respiratory Rate 18 24 18 Blood Pressure 131/71 124/65 Pulse Oximetry 97 98 10/08/18 16:00 Temperature 98.4 F Pulse Rate 65 Respiratory Rate 20 Blood Pressure 124/76 Pulse Oximetry 99 Intake & Output 10/07/18 10/08/18 10/08/18 18:59 06:59 18:59 Intake Total 2480 / 2480 1100 / 1100 1999 Output Total 800 / 800 Balance 1680 / 1680 1100 / 1100 1999 Weight 61.2 kg Intake: IV 1999 / 1999 1000 / 1000 1999 / 1999 NS Inj 1,000 ML @ 150 mls/hr IV 1999 / 1999 1000 / 1000 1999 .CONT .Q6H40M [facility] Rx#:[id number] Oral 480 / 480 100 / 100 Output: Urine 800 / 800 Other: # Voids 5 4 Date of Last Bowel Movement 10/07/18 10/07/18 # Bowel Movements 1 Result Diagrams: 10/07/18 05:02 10/08/18 05:19 Other Results: No CVA tenderness, bladder not distended Imaging: Impressions Abdomen/Bladder Ultrasound 10/08/18 00:00 CONCLUSION: 1. Moderate right hydronephrosis and proximal hydroureter. 2. Normal left kidney and collecting system. Medications and IVs: Active Medications Generic Name Dose Route Start Last Admin Trade Name Freq PRN Reason Stop Dose Admin Acetaminophen 650 mg 10/06/18 11:47 Tylenol PO Q4H PRN Temp > 100.4 Al Hydroxide/Mg Hydroxide 30 ml 10/06/18 11:47 10/07/18 08:17 Milk Of Magnesia Liq PO 30 ml Q12H PRN Administration Mild Constipation Albuterol 1 ampul 10/07/18 16:00 10/08/18 16:40 Duoneb Neb (Taylor) NEB Not Given Q4HR NEB TAYLOR Bisacodyl 10 mg 10/06/18 11:47 Dulcolax Supp RECTAL DAILY PRN SEVERE CONSITIPATION Hydromorphone HCl 1 mg 10/06/18 11:47 10/08/18 16:03 Dilaudid Pf Inj IV.PUSH 1 mg Q3H PRN Administration BREAKTHROUGH PAIN Sodium Chloride 1,000 mls @ 150 mls/hr 10/06/18 12:00 10/08/18 15:23 Ns Inj IV.CONT 100 mls/hr .Q6H40M TAYLOR Administration Lactulose 30 ml 10/06/18 11:47 Lactulose Liq PO DAILY PRN SEVERE CONSITIPATION Morphine Sulfate 2 mg 10/08/18 09:44 Morphine Inj IV.PUSH Q3H PRN PAIN 3-5; IF UABLE TO TAKE PO Morphine Sulfate 4 mg 10/08/18 09:44 10/08/18 14:54 Morphine Inj IV.PUSH 4 mg Q3H PRN Administration PAIN 6-10;IF UNABLE TO TAKE PO Naloxone HCl 0.4 mg 10/06/18 15:13 Narcan Inj IV.PUSH UNSCH PRN SEE LABEL COMMENTS Ondansetron HCl 4 mg 10/06/18 11:47 Zofran Inj IV.PUSH Q6H PRN NAUSEA OR VOMITING Senna/Docusate Sodium 1 tab 10/06/18 21:00 10/08/18 08:43 Lisandra-Colace PO 1 tab BID TAYLOR Administration Sennosides 17.2 mg 10/06/18 11:47 Senokot PO Q12H PRN Moderate Constipation Sodium Chloride 2 ml 10/06/18 11:47 Ns Flush IV.FLUSH PRN PRN FLUSH AFTER USING IV ACCESS Sodium Chloride 2 ml 10/06/18 21:00 10/08/18 08:44 Ns Flush IV.FLUSH 2 ml BID TAYLOR Administration Sodium Chloride 2 ml 10/07/18 21:00 10/08/18 08:44 Ns Flush IV.FLUSH Not Given BID TAYLOR Sodium Chloride 2 ml 10/07/18 12:23 Ns Flush IV.FLUSH PRN PRN FLUSH AFTER USING IV ACCESS Tamsulosin HCl 0.4 mg 10/06/18 15:00 10/08/18 08:43 Flomax PO 0.4 mg DAILY TAYLOR Administration Temazepam 15 mg 10/07/18 21:26 10/07/18 21:58 Restoril PO 15 mg HS PRN Administration INSOMNIA Assessment and Plan - Assessment (1) Ureteral calculus, right Code(s): N20.1 - Calculus of ureter Status: Acute (2) Renal calculus, bilateral Code(s): N20.0 - Calculus of kidney Status: Acute - Plan Urologic impression: 1. Right flank pain related to an obstructing 5 mm right proximal ureteral calculus causing hydronephrosis and has not passed with conservative measures. 2. Bilateral small renal calculi Plan: 1. N.p.o. after midnight 2. Continue to strain all urine 3. We will place the patient on the OR schedule for tomorrow to include cystoscopy, right retrograde pyelogram and right ureteral stent placement
[2018-10-08] MEDS: Temazepam 15 MG Capsule PO PRN (22:02)
[2018-10-09] MEDS ORDERED: Metoprolol Tartrate 25 MG Tablet PO SCH (01:09)
[2018-10-09] MEDS ORDERED: Chlorhexidine Gluconate 2% 1 Pack (2 Cloths) TOPICAL ONE (01:09)
[2018-10-09] MEDS: HYDROmorphone PF Inj 1 MG/ML Ampul IV.PUSH PRN ×3 (01:38→07:47)
[2018-10-09] MEDS ORDERED: Sodium Chlor 0.9% Inj 500 ML IV.SIG SCH (02:00)
[2018-10-09] MEDS: Morphine Inj 4 MG/ML Vial IV.PUSH PRN ×2 (02:52→05:58)
[2018-10-09 05:32] LABS: Baso % (Auto) 0.5 % (0.0-2.0); Eos # (Auto) 0.5 th/mm3 (0.0-0.4); Eos % (Auto) 9.9 % (0.0-4.0); Hematocrit 33.1 % (39.0-51.0); Hemoglobin 11.6 gm/dL (13.0-17.0); Lymph # (Auto) 1.1 th/mm3 (1.0-4.8); Lymph % (Auto) 21.7 % (9.0-44.0); Mean Corpuscular Hemoglobin 34.7 pg (27.0-34.0); Mean Corpuscular Volume 99.2 fL (80.0-100.0); Mean Platelet Volume 8.9 fL (7.0-11.0); Mono # (Auto) 0.6 th/mm3 (0.0-0.9); Mono % (Auto) 10.7 % (0.0-8.0); Neut % (Auto) 57.2 % (16.0-70.0); Platelet Count 88 th/mm3 (150-450); Red Blood Count 3.34 mil/mm3 (4.50-5.90); Red Cell Distribution Width 13.3 % (11.6-17.2); White Blood Count 5.2 th/mm3 (4.0-11.0)
[2018-10-09 05:51] LABS: Calcium 7.8 mg/dL (8.5-10.1); Carbon Dioxide 26.8 meq/L (21.0-32.0); Potassium 4.6 meq/L (3.5-5.1)
[2018-10-09] MEDS: Sod Chloride 0.9% Inj 1,000 ML IV.CONT SCH (08:30)
[2018-10-09] MEDS: Senna/Docusate Sodium 8.6/50 MG Tablet PO SCH (09:47)
--- NOTE | 2018-10-09 11:31 | P.PNFP ---
Subjective Interval history: Patient seen and examined at bedside this morning. Is currently n.p.o. for his cystoscopy later today. He continues to have urinary frequency. Still complaining of right lower quadrant and flank pain. States that the pain medicine has been helping. Complains of some leg swelling this morning. Also complains of some constipation overnight. He denies any chest pain or shortness of breath. <Eduarda Gonzalez - 10/09/18 11:41> Results - Labs Result diagrams: 10/09/18 04:48 10/09/18 04:48 <Dedra Koehler - 10/09/18 17:17> Abnormal lab results 10/09/18 10/09/18 Range/Units 04:48 04:48 RBC 3.34 L (4.50-5.90) mil/mm3 Hgb 11.6 L (13.0-17.0) gm/dL Hct 33.1 L (39.0-51.0) % MCH 34.7 H (27.0-34.0) pg Plt Count 88 L D (150-450) th/mm3 Levy % (Auto) 10.7 H (0.0-8.0) % Eos % (Auto) 9.9 H (0.0-4.0) % Eos # (Auto) 0.5 H (0.0-0.4) th/mm3 Chloride 109 H (98-107) meq/L Creatinine 1.35 H (0.60-1.30) mg/dL Estimated GFR 57 L (>89) mL/min Calcium 7.8 L (8.5-10.1) mg/dL Short CBC 10/09/18 Range/Units 04:48 WBC 5.2 (4.0-11.0) th/mm3 Hgb 11.6 L (13.0-17.0) gm/dL Hct 33.1 L (39.0-51.0) % Plt Count 88 L D (150-450) th/mm3 BMP 10/09/18 04:48 Sodium 141 Potassium 4.6 Chloride 109 H Carbon Dioxide 26.8 BUN 9 Creatinine 1.35 H Calcium 7.8 L <Dedra Koehler - 10/09/18 17:17> Abnormal lab results 10/09/18 10/09/18 Range/Units 04:48 04:48 RBC 3.34 L (4.50-5.90) mil/mm3 Hgb 11.6 L (13.0-17.0) gm/dL Hct 33.1 L (39.0-51.0) % MCH 34.7 H (27.0-34.0) pg Plt Count 88 L D (150-450) th/mm3 Levy % (Auto) 10.7 H (0.0-8.0) % Eos % (Auto) 9.9 H (0.0-4.0) % Eos # (Auto) 0.5 H (0.0-0.4) th/mm3 Chloride 109 H (98-107) meq/L Creatinine 1.35 H (0.60-1.30) mg/dL Estimated GFR 57 L (>89) mL/min Calcium 7.8 L (8.5-10.1) mg/dL Short CBC 10/09/18 Range/Units 04:48 WBC 5.2 (4.0-11.0) th/mm3 Hgb 11.6 L (13.0-17.0) gm/dL Hct 33.1 L (39.0-51.0) % Plt Count 88 L D (150-450) th/mm3 BMP 10/09/18 04:48 Sodium 141 Potassium 4.6 Chloride 109 H Carbon Dioxide 26.8 BUN 9 Creatinine 1.35 H Calcium 7.8 L <Eduarda Gonzalez - 10/09/18 11:31> - Imaging Impressions Abdomen X-Ray 10/09/18 00:00 CONCLUSION: Right double-J stent in good position. <Dedra Koehler - 10/09/18 17:17> Impressions Abdomen/Bladder Ultrasound 10/08/18 00:00 CONCLUSION: 1. Moderate right hydronephrosis and proximal hydroureter. 2. Normal left kidney and collecting system. <Eduarda Gonzalez - 10/09/18 11:31> Physical Exam Vital signs: Vital Signs 10/08/18 20:15 10/09/18 00:35 10/09/18 05:25 Temperature 99.4 F 96 F L 98.3 F Pulse Rate 71 75 65 Respiratory Rate 18 18 18 Blood Pressure 129/66 126/68 117/62 Pulse Oximetry 98 96 99 10/09/18 08:00 10/09/18 13:00 10/09/18 13:15 Temperature 98.4 F 97.5 F L Pulse Rate 61 74 75 Respiratory Rate 19 16 16 Blood Pressure 113/69 107/52 L 108/56 L Pulse Oximetry 99 97 100 10/09/18 13:30 10/09/18 14:00 10/09/18 14:19 Temperature 98.0 F Pulse Rate 77 60 60 Respiratory Rate 20 20 20 Blood Pressure 152/91 H 145/82 H 145/83 H Pulse Oximetry 100 95 96 Intake & Output 10/08/18 10/09/18 10/09/18 18:59 06:59 18:59 Intake Total 2720 / 2720 1680 / 1680 1000 / 1000 Output Total 1500 / 1500 300 / 300 Balance 2720 / 2720 180 / 180 700 / 700 Weight 62.5 kg Intake: IV 1999 / 1999 1000 / 1000 1000 / 1000 NS Inj 1,000 ML @ 150 mls/hr IV 1999 / 1999 1000 / 1000 1000 / 1000 .CONT .Q6H40M [facility] Rx#:[id number] Oral 720 / 720 680 / 680 Output: Urine 1500 / 1500 Urine Amount (Catheter) 300 / 300 Indwelling Urethral Catheter 300 / 300 Other: # Voids 9 3 Date of Last Bowel Movement 10/07/18 10/07/18 10/07/18 # Bowel Movements 0 <Dedra Koehler R - 10/09/18 17:17> Vital Signs 10/08/18 12:00 10/08/18 16:00 10/08/18 20:15 Temperature 97.8 F 98.4 F 99.4 F Pulse Rate 75 65 71 Respiratory Rate 18 20 18 Blood Pressure 124/65 124/76 129/66 Pulse Oximetry 98 99 98 10/09/18 00:35 10/09/18 05:25 10/09/18 08:00 Temperature 96 F L 98.3 F 98.4 F Pulse Rate 75 65 61 Respiratory Rate 18 18 19 Blood Pressure 126/68 117/62 113/69 Pulse Oximetry 96 99 99 Intake & Output 10/08/18 10/09/18 10/09/18 18:59 06:59 18:59 Intake Total 2720 / 2720 1680 / 1680 1000 / 1000 Output Total 1500 / 1500 Balance 2720 / 2720 180 / 180 1000 / 1000 Weight 62.5 kg Intake: IV 1999 1000 / 1000 1000 / 1000 NS Inj 1,000 ML @ 150 mls/hr IV 1999 1000 / 1000 1000 / 1000 .CONT .Q6H40M [facility] Rx#:[id number] Oral 720 / 720 680 / 680 Output: Urine 1500 / 1500 Other: # Voids 9 3 Date of Last Bowel Movement 10/07/18 10/07/18 10/07/18 # Bowel Movements 0 <KeriRodríguez carterEduarda - 10/09/18 11:31> Narrative: GENERAL: Thin appearing male, moaning in pain, sitting up on the side of the bed. SKIN: Warm and dry. HEAD: Normocephalic. EYES: No scleral icterus. No injection or drainage. NECK: Supple, trachea midline. No JVD or lymphadenopathy. CARDIOVASCULAR: Regular rate and rhythm without murmurs, gallops, or rubs. RESPIRATORY: Clear to auscultation bilaterally. No accessory muscle use. GASTROINTESTINAL: Abdomen soft, nondistended, tenderness to palpation of the right lower quadrant -unchanged from prior exam. MUSCULOSKELETAL: 1+ pitting edema bilaterally. No calf tenderness to palpation. BACK: Nontender without obvious deformity. <Eduarda Gonzalez - 10/09/18 11:38> - Urinary Catheter Management Indwelling Urethral Catheter Cath placed during this visit: yes, but has since been removed by the nurse < Dedra Koehler - 10/09/18 17:17> Reason for continuing: Other continuation reason <Dedra Koehler - 17:17> Insertion date: 10/09/18 <Dedra Koehler - 10/09/18 17:17> Insertion time: 14:07 <Dedra Koehler - 10/09/18 17:17> Removal date: 10/09/18 <Dedra Koehler - 10/09/18 17:17> Removal time: 15:04 <Dedra Koehler - 10/09/18 17:17> Assessment and Plan - Assessment (1) Kidney stone on right side Code(s): N20.0 - Calculus of kidney Status: Acute (2) Wheezing Code(s): R06.2 - Wheezing Status: Acute (3) Constipation Code(s): K59.00 - Constipation, unspecified Status: Acute (4) Pitting edema Code(s): R60.9 - Edema, unspecified Status: Acute (5) DVT prophylaxis Status: Acute (6) Nutrition, metabolism, and development symptoms Code(s): R63.8 - Other symptoms and signs concerning food and fluid intake Status: Acute <Dedra Koehler - 10/09/18 17:17> (1) Kidney stone on right side Code(s): N20.0 - Calculus of kidney Status: Acute Plan: CT abdomen on admission showed right hydronephrosis and hydroureter caused by 5 x 3 mm stone in the right proximal ureter. -Urology consulted. Recommended Flomax 0.4 mg daily. -Creatinine was elevated up to 1.6, today decreased to 1.35 -Patient reporting CVA tenderness: controlled on morphine and dilaudid IV. -Renal U/S: Moderate right hydronephrosis and proximal hydroureter. -N.p.o. today for cystoscopy and right urethral stent. -Monitor I's and O's. (2) Wheezing Code(s): R06.2 - Wheezing Status: Acute Plan: Duo nebs ordered, improved (3) Constipation Code(s): K59.00 - Constipation, unspecified Status: Acute Plan: Lisandra-Colace twice daily scheduled. Encouraged stool softeners. (4) Pitting edema Code(s): R60.9 - Edema, unspecified Status: Acute Plan: Patient complains of pitting edema bilaterally. Possibly due to fluid overload. will decrease maintenance fluids to 100 mls/hour. (5) DVT prophylaxis Status: Acute Plan: SCDs only. (6) Nutrition, metabolism, and development symptoms Code(s): R63.8 - Other symptoms and signs concerning food and fluid intake Status: Acute Plan: Fluids: Normal saline at 100 mls/hour. Electrolytes: Monitor and replete as needed Diet: Cardiac diet. <Eduarda Gonzalez - 10/09/18 11:42> - Assessment and Plan Stones presents with acute right flank pain which radiation into the right lower quadrant and right groin. CT abdomen positive for right hydronephrosis and hydroureter caused by 5 x 3 mm stone. UA unremarkable. Urology consulted, recommends fluids and Flomax 0.4 mg daily. Patient admitted for pain control of nephrolithiasis. Creatinine increased after admission and patient's pain is poorly controlled on p.o. meds. Currently requiring IV pain medication and repeating renal ultrasound to assess for worsening hydronephrosis. N.p.o. today for right urethral stent/cystoscopy. <Eduarda Gonzalez - 10/09/18 11:38> - Attending Attestation Pt seen and examined and dw the resident team. Agree with the assessment and plan <Dedra Koehler - 10/09/18 17:17>
[2018-10-09] MEDS ORDERED: Iohexol Inj 350 MG/ML 100 ML Bottle (for RAD Diag) IVCONTRAST ONE (12:18)
--- NOTE | 2018-10-09 13:00 | P.OP ---
- Preoperative Diagnosis (1) Ureteral calculus, right - Postoperative Diagnosis (1) Ureteral calculus, right Date of procedure: 10/09/18 Procedure: Cystoscopy, right retrograde pyelogram and right ureteral stent placement Implants: Grand Pass 6 Liberian by 22 cm double-J stent Anesthesia: ADALGISA Surgeon: Jorje Posadas MD Estimated blood loss (mL): 5 Pathology: none sent Operation and Findings: Indication for procedures: Case of a pleasant 47-year-old gentleman with a 5 mm right ureteral calculus which has failed to pass spontaneously with conservative management. Patient presents now for cystoscopy and right ureteral stent placement. Operative procedures in detail: Patient was brought to the operating suite and placed supine on the cystoscopy table. He was then placed under general anesthesia. He was then repositioned in the dorsolithotomy position and prepped and draped in normal sterile fashion. After appropriate timeout was undertaken I proceeded with cystoscopic evaluation utilizing the rigid cystoscope with the 30 degree lens and the 20 Liberian sheath. The urethra was patent without stricture formation and the prostate was nonobstructing. Further passes of the cystoscope within the urinary bladder revealed both right and left ureteral orifices to be in correct anatomic position. There was clear drainage on the left and none noted on the right side. A 6 Liberian open-ended ureteral cath was utilized and a right retrograde pyelogram study was performed. The stone could not clearly be seen with fluoroscopy however obstruction was noted involving the right proximal ureter with a filling defect consistent with the patient's known calculus. I then attempted to pass a sensor 0.035 wire through the open-ended catheter and up into the right renal pelvis however the wire would not easily pass I then utilized a nitinol hockey- stick wire and this was able to pass up into the right renal pelvis. The open- ended catheter was then fully advanced up into the right renal pelvis and the nitinol wire exchanged for the sensor wire. A 6 Liberian by 22 cm double-J stent was then placed on the both cystoscopic and fluoroscopic guidance without difficulty and once the stent was in proper position the trailing string was removed. After placing the stent there was some bloody drainage noted from the stent itself and thus a decision was made to place a B[place]eo catheter. The patient tolerated the procedures without complications and was transferred to the PACU in satisfactory condition. I will order a KUB study to better assess how well the stone images were plain imaging studies.
[2018-10-09] MEDS ORDERED: fentaNYL Citrate Inj 100 MCG/2 ML Ampul ONE (13:05)
[2018-10-09] MEDS ORDERED: *Meperidine Inj 25 MG/ML Vial PERIprocedural Use ONLY ONE (13:25)
[2018-10-09] MEDS ORDERED: *morphine SULFATE 4 MG/ML PERIprocedure ONLY ONE ×2 (13:34→14:09)
--- NOTE | 2018-10-09 14:23 | XR ---
EXAM DATE: 10/09/2018 1:40 PM EST AGE/SEX: 47 years / Male INDICATIONS: Post op right side stent placement. CLINICAL DATA: This is the patient's initial encounter. Patient reports that signs and symptoms have been present for 1 day and indicates a pain score of Nonresponsive. MEDICAL/SURGICAL HISTORY: . renal calculi, coronary artery disease. None. COMPARISON: [facility] – [place] ABDOMEN & PELVIS W/O CONTRAST, 10/06/2018. . FINDINGS: . Residual calcifications remain in the right kidney. I do not see cascades along the course of the right ureter. There are no definite cascades the left although the outline is obscured by bowel gas a nd stool. CONCLUSION: Right double-J stent in good position. Electronically signed by: Rogers Tucker MD 10/09/2018 2:21 PM EST
--- NOTE | 2018-10-10 10:23 | ECG ---
Date Performed: 10/09/2018 Time Performed: 10:51:19 PTAGE: 47 years EKG: SINUS BRADYCARDIA INCOMPLETE RIGHT BUNDLE BRANCH BLOCK Consider ASMI, age indeterminate PREVIOUS TRACING : 04/08/2017 04.06 DOCTOR: Suman Ledbetter Interpretating Date/Time 10/10/2018 10:20:51
== END 2018-10-09 18:15 | disposition home or self-care (01) ==
LOC: NEPC 05:40 → NEDA 05:40 → N06 13:01
PROVIDERS: ADMIT Family Medicine; ATTEND Family Medicine